=== PATIENT | male | born 1940 | race Caucasian/White ===

== ENCOUNTER 2019-07-20 15:01 | Inpatient (IN) | payer MEDICARE, OTHER ==
[~2019-07-20] VITALS: Ht 172.7 cm; Wt 74.3 kg
[2019-07-20] MEDS ORDERED: BISACODYL 10 MG SUPP PR PRN (15:45)
[2019-07-20 18:00] VITALS: BP 166/78
[2019-07-20] MEDS ORDERED: HEPA100I26 SC (19:08)
[2019-07-20] MEDS ORDERED: FAMO20TA PO (19:08)
[2019-07-20] MEDS ORDERED: RA S8.6T3 PO (19:08)
[2019-07-20] MEDS ORDERED: ATOR80TA59 PO (19:08)
[2019-07-20] MEDS ORDERED: DOCU100C17 PO (19:08)
[2019-07-20] MEDS ORDERED: NIFE90TA20 PO (19:08)
[2019-07-20] MEDS ORDERED: HYDR-2808 PO (19:08)
[2019-07-20] MEDS ORDERED: CALC500T61 PO (19:08)
[2019-07-20] MEDS ORDERED: ASPI81TA85 PO (19:08)
--- NOTE | 2019-07-20 19:33 | CR.PDOC ---
General Date of Consultation: July 20, 2019 Referring Provider: KATHLEEN GALVAN MD Primary Care Physician Germán Mooney Consultation TIME OF SERVICE: 10:35 PM REASON FOR CONSULT: Medical comanagement HISTORY OF PRESENT ILLNESS: This is a 79 -year-old gentleman who was transferred to ARU for rehabilitation from [facility] where he was admitted for management of a left- sided CVA with right-sided residual weakness. This evening he denies having any acute complaints. Per discussion with his RN he was asking for his nighttime dose of Franklin. 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 A1c 6.5 % Chronic lower back pain/DJD affecting the lower back Dyslipidemia Chronic hypertension SOCIAL HISTORY: He quit smoking He doesn't drink FAMILY HISTORY: [place] ALLERGIES: Please see below. HOME MEDICATIONS: Please see below. PHYSICAL EXAMINATION: Vital Signs Date Time Temp Pulse Resp B/P (MAP) Pulse Ox O2 Delivery O2 Flow Rate FiO2 07/20/19 18:00 97.1 76 17 166/78 (107) 98 Room Air GEN: well-nourished / well developed/ NAD INTEGUMENT: not flushed/ not jaundice HEENT: NCAT / /mucus membranes moist and pink CVS: RRR/NMRG LUNGS: able to speak full sentences without stopping to take a breath / lungs are clear to auscultation bilaterally on room air NEURO: speech is not dysarthric / RUE strength approx 1/5, RLE strength approx 3/5 PSYCH: alert and oriented to person place and time/ able to understand and follow all commands LABORATORY DATA: IMAGING: n/a ASSESSMENT: Mr. Go is a 79-year-old with a history of left-sided CVA, carotid stenosis, chronic back pain, dyslipidemia, hypertension, and prediabetes who is admitted to ARU for post CVA rehabilitation. PLAN: 1. Debility 2/2 left-sided CVA - management per Dr Ibrahim / agree w ASA and statin 2. Chronic back pain - Franklin PRN / scheduled lidocane patch 3. Dyslipidemia - statin 4. Uncontrolled chronic hypertension - nifedipine / pending BMP may add low dose ACEI bc of co-existing preDM 5. Prediabetes - exercise Thank you for consulting us we will continue to follow this patient with you. DVT PROPHYLAXIS: per primary team DISPOSITION: per primary team Allergies Coded Allergies: No Known Allergies (Unverified , 07/20/19) Home Medications Scheduled Aspirin (Aspir 81) 81 Mg Tablet.dr, 81 MG PO DAILY, (Reported) Atorvastatin Calcium (Atorvastatin Calcium) 80 Mg Tablet, 80 MG PO QHS, (Reported) Docusate Sodium (Docusate Sodium) 100 Mg Capsule, 100 MG PO BID, (Reported) Famotidine (Famotidine) 20 Mg Tablet, 20 MG PO BID, (Reported) Heparin Sodium,Porcine/Pf (Heparin 1,000 Unit/10 (100/ml)) 1,000 Unit/10 Ml Syringe, 5,000 UNIT SC Q12H, (Reported) STARTED AT [facility] Nifedipine (Nifedipine ER) 90 Mg Tablet.er, 90 MG PO DAILY, (Reported) Sennosides (Senna Lax) 8.6 Mg Tablet, 2 TAB PO QHS, (Reported) Scheduled PRN Calcium Carbonate (Calcium Carbonate) 500 Mg Tablet, 500 MG PO Q4H PRN for HEARTBURN, (Reported) Hydrocodone/Acetaminophen (Hydrocodone-Acetamin 5-300 mg) 1 Each Tablet, 1 TAB PO Q4H PRN for PAIN, (Reported) URIAH OATES MD July 20, 2019 19:33
[2019-07-20 20:00] VITALS: BP 164/82
[2019-07-20] MEDS: REMEDY PHYTOPLEX Z-GUARD PASTE 113GM TUBE (FROM STOREROOM PRODUCT) TOP SCH (20:34)
[2019-07-20] MEDS: ATORVASTATIN 20 MG TAB PO SCH (20:46)
[2019-07-20] MEDS: SENNA 8.6 MG TAB (SENOKOT) PO SCH (20:46)
[2019-07-20] MEDS: DOCUSATE SODIUM 100 MG CAP PO SCH (20:47)
[2019-07-20] MEDS: HEPARIN SOD (PORCINE) 5000UNITS/ML VIAL (J1644 PER 1000UNITS) SC SCH (20:47)
[2019-07-20] MEDS: FAMOTIDINE 20 MG TAB PO SCH (20:47)
[2019-07-20] MEDS: ACETAMINOPHEN TAB 650MG DOSE (2X325MG) PO PRN (20:49)
[2019-07-20] MEDS ORDERED: OYSTER SHELL CALCIUM 500 MG TAB PO PRN (23:00)
[2019-07-20] MEDS ORDERED: NORCO, ANEXSIA 5/325MG TABLET (HYDROcodone/ACETAMINOPHEN) PO PRN (23:00)
[2019-07-21 06:00] VITALS: BP 162/86
[2019-07-21 07:07] LABS: BASO % 0.4 % (0.0-1.0); EOS # 0.1 10^3/uL (0.0-0.5); EOS % 1.2 % (0.0-3.0); HEMATOCRIT 37.4 % (42.0-52.0); HEMOGLOBIN 12.4 g/dl (13.5-17.5); LYMPH # 1.4 10^3/uL (1.5-5.0); LYMPH % 12.5 % (24.0-44.0); MEAN CORPUSCULAR HEMOGLOBIN 32.5 pg (27.0-33.0); MEAN CORPUSCULAR HGB CONC 33.2 g/dl (32.0-36.5); MEAN CORPUSCULAR VOLUME 97.9 fl (80.0-96.0); NEUTROPHILS # 8.4 10^3/uL (1.5-8.5); NEUTROPHILS % 76.1 % (36.0-66.0); PLATELET COUNT, AUTOMATED 328 10^3/uL (150-450); RED BLOOD COUNT 3.82 10^6/uL (4.30-6.10)
[2019-07-21 07:27] LABS: ALBUMIN 2.7 GM/DL (3.2-5.2); ALT/SGPT 50 U/L (12-78); BILIRUBIN,TOTAL 0.9 MG/DL (0.2-1.0); BLOOD UREA NITROGEN 23 MG/DL (7-18); CALCIUM LEVEL 9.4 MG/DL (8.8-10.2); CARBON DIOXIDE LEVEL 28 MEQ/L (21-32); CHLORIDE LEVEL 103 MEQ/L (98-107); CREATININE FOR GFR 0.85 MG/DL (0.70-1.30); GLOMERULAR FILTRATION RATE > 60.0 (>42); GLUCOSE, FASTING 99 MG/DL (70-100); POTASSIUM SERUM 3.6 MEQ/L (3.5-5.1); SODIUM LEVEL 137 MEQ/L (136-145); TOTAL PROTEIN 7.3 GM/DL (6.4-8.2)
[2019-07-21] MEDS: NIFEdipine 30 MG XL TAB PO SCH (08:42)
[2019-07-21] MEDS: DOCUSATE SODIUM 100 MG CAP PO SCH ×2 (08:42→21:00)
[2019-07-21] MEDS: FAMOTIDINE 20 MG TAB PO SCH ×2 (08:42→21:54)
[2019-07-21] MEDS: ASPIRIN 81 MG ENTERIC TAB PO SCH (08:42)
[2019-07-21] MEDS: HEPARIN SOD (PORCINE) 5000UNITS/ML VIAL (J1644 PER 1000UNITS) SC SCH ×2 (08:43→21:54)
[2019-07-21] MEDS: REMEDY PHYTOPLEX Z-GUARD PASTE 113GM TUBE (FROM STOREROOM PRODUCT) TOP SCH ×3 (08:43→21:55)
[2019-07-21] MEDS ORDERED: amLODIPine 10 MG TAB PO SCH (11:30)
--- NOTE | 2019-07-21 12:11 | HPEPDOC ---
[facility] Note DATE OF ADMISSION: 07-20-19 DATE OF SERVICE: 07-21-19 TIME OF ADMISSION: Please refer to physician's admission order. SOURCE OF ADMISSION INFORMATION: [facility] records and patient CHIEF COMPLAINT: stroke HISTORY OF PRESENT ILLNESS: 79M pmh HTN, HLD presented to [facility] on 07-17-19 with right sided weakness where CTH did not show acute intracranial abnormality, but MRI did show acute nonhemorrhagic focus of ischemia in the left anterior wendi. He was started on aspirin and statin with US carotids showing bilateral moderate abe nosis <60% and CTA showing moderate calcific plaque formation of both carotid bulbs and origin of both internal carotid arteries with approximately 75% surface area of narrowing. ECHO revealed LVEF of 63% and mild left ventricular diastolic dysfunction with abnormal relaxation pattern. He was evaluated by therapy, noted to have dysphagia and impairments in mobility and ADLs well below baseline and determined to be appropriate for discharge to ARU on 07-20-19. REVIEW OF SYSTEMS: The following is a completed review of systems and has been reviewed. Review of systems otherwise unremarkable. PAIN: Patient self reports no pain EYES: No recent vision changes EARS, NOSE, & THROAT:+dysphagia CARDIOVASCULAR: Denies chest pain or palpitations PULMONARY: Denies shortness of breath GASTROINTESTINAL: Denies constipation/diarrhea GENITOURINARY: +mild retention MUSCULOSKELETAL: right sided weakness NEUROLOGICAL:right sided paresis HEMATOLOGICAL: no easy bruising SKIN: no rash PSYCHIATRIC: Unremarkable All other review of systems found to be negative. PAST MEDICAL HISTORY: as per HPI PAST SURGICAL HISTORY: none ALLERGIES: Please see below. MEDICATIONS: Please see below. FAMILY HISTORY: [place] SOCIAL HISTORY: No etoh/illicit drugs/smoking DIET: low salt, fluid restrict PHYSICAL EXAMINATION: VITAL SIGNS: Please see below. GENERAL: Pleasant and cooperative. No acute distress. no obvious facial droop, tongue midline HEENT: PERRL. Extraocular movements intact. Clear conjunctiva CARDIOVASCULAR: Regular rate and rhythm. No murmurs, rubs, or gallops LUNGS: Clear to auscultation bilaterally. No wheezes. No rhonchi ABDOMEN: Soft, nontender, nondistended. Positive bowel sounds. Normal active bowel sounds NEUROLOGICAL: Alert and oriented times three. Cranial nerves II through XII grossly intact. Sensation grossly intact in all 4limbs, no exntinction to touch +babinksi RLE (-)clonus EXTREMITIES: 5\5 strength left upper extremity, 2+/5 right UE, 3+ right hip flexors, knee extension, 1/5 ankle DF and EHL, 2/5 PF 5/5 strength in left lower extremity. SKIN: no sacral erythema LABORATORY DATA: Please see below. IMAGING:Imaging documentation personally reviewed by record FUNCTIONAL STATUS: Premorbid: Independent with all activities of daily life as well as mobility On Admission: Moderate assist for bed mobility, functional transfers, ambulation GOALS: Modified independent with functional transfers, household distance, stairs, dressing, bathing, toileting, medical optimization ASSESSMENT:79-year-old M with past medical history of HTN who presents status p ost CVA with right sided hemiparesis PLAN: 1.Rehab- PT/OT advance gait and ADL training, strengthen/stretch/maintain ROM all 4 limbs, evaluate for AFO, Estim to RUE -MANAGER MANAGEMENT for swallow and cog eval 2. Neuro: s/p left anterior wendi ischemic infarct now with right sided paresis and dysphagia, c/u ASA, statin, and good BP control -will start SSRI for motor recovery 3. cardiac: hx of HTn c/u nifedeipine, will add lisinopril for elevated BPs -recent echo showing mild diastolic CHF likely chronic- daily weights, fluid restrict -bilateral carotid stenosis 60% on US, however 75% on CTA- f/u with cardiology regarding further work-up 4. Resp: encourage incentive spirometry, monitor for infection 5. : monitor PVRs, noted to have elevated PSA with microhematuria at [facility], f/u with PMD -will start flomax for suspected enlarged prostate, will consider urology referral 6. GI ppx: protonix 7.DVT ppx: heparin, TEDs 8. Pain: tylenol prn 9. Dispo: TBD POST ADMISSION PHYSICIAN EVALUATION: Medical and functional status: Description of medical status, medical assessment: As above. Rehabilitation diagnosis and current and prior cold morbid medical conditions as above. Risk of complications and plans to mitigate them as above. Description of functional status current status is as above. Prior status as above. Status compared to preadmission: There are no clinically significant differences between the patient's current status and the information described on the preadmission screening document. Treatment plan anticipated: Treatment plan is as described above. Required disciplines including physical therapy, occupational therapy, others as noted above. Intensity of services: 3 hours a day, 6 days a week. Special considerations: There are no specific special or safety considerations that would likely preclude immediate implementation of an intensive rehabilitation program or subsequently influence the plan of care. ATTESTATION: Considering all the information above, it is my best judgment that this patient requires intensive rehabilitation therapy as described above and an inpatient hospital environment due to the complexity of nursing, medical, and rehabilitation needs required by the patient. Furthermore, this patient can reasonably be expected to participate in an benefit from an inpatient rehabilitation stay with an interdisciplinary team approach to the delivery of rehabilitation care under the direction and supervision of rehabilitation physician. PROGNOSIS: Excellent ESTIMATED LENGTH OF STAY:18-21 days. PROJECTED DISCHARGE DESTINATION: Home with family support and any durable medical equipment required to increase functional safety and mobility. TIME SPENT COUNSELING AND COORDINATING INITIAL CARE: Greater than 70 minutes. Vital Signs Vital Sign - Last 24 Hours 07/20/19 07/20/19 07/21/19 07/21/19 18:00 20:00 06:00 08:42 Temp 97.1 97.3 98.6 Pulse 76 69 72 Resp 17 16 16 B/P (MAP) 166/78 (107) 164/82 (109) 162/86 (111) 162/86 Pulse Ox 98 99 98 O2 Delivery Room Air Room Air Room Air 07/21/19 11:26 Pulse 78 B/P (MAP) 163/76 Laboratory Data CBC/BMP Laboratory Tests 07/21/19 06:28 Labs 24H Laboratory Tests 2 07/20/19 17:59: Coronavirus (COVID-19)(PCR) NEGATIVE 07/21/19 06:28: Immature Granulocyte % (Auto) 0.8, Neutrophils (%) (Auto) 76.1H, Lymphocytes (%) (Auto) 12.5L, Monocytes (%) (Auto) 9.0H, Eosinophils (%) (Auto) 1.2, Basophils (%) (Auto) 0.4, Neutrophils # (Auto) 8.4, Lymphocytes # (Auto) 1.4L, Monocytes # (Auto) 1.0H, Eosinophils # (Auto) 0.1, Basophils # (Auto) 0.0, Nucleated Red Blood Cells % (auto) 0.0, Anion Gap 6L, Glomerular Filtration Rate > 60.0, Calcium Level 9.4, Total Bilirubin 0.9, Aspartate Amino Transf (AST/SGOT) 34, Alanine Aminotransferase (ALT/SGPT) 50, Alkaline Phosphatase 123H, Total Protein 7.3, Albumin 2.7L, Albumin/Globulin Ratio 0.59L Home Medications Scheduled Aspirin (Aspir 81) 81 Mg Tablet.dr, 81 MG PO DAILY, (Reported) Atorvastatin Calcium (Atorvastatin Calcium) 80 Mg Tablet, 80 MG PO QHS, (Reported) Docusate Sodium (Docusate Sodium) 100 Mg Capsule, 100 MG PO BID, (Reported) Famotidine (Famotidine) 20 Mg Tablet, 20 MG PO BID, (Reported) Heparin Sodium,Porcine/Pf (Heparin 1,000 Unit/10 (100/ml)) 1,000 Unit/10 Ml Syringe, 5,000 UNIT SC Q12H, (Reported) STARTED AT [facility] Nifedipine (Nifedipine ER) 90 Mg Tablet.er, 90 MG PO DAILY, (Reported) Sennosides (Senna Lax) 8.6 Mg Tablet, 2 TAB PO QHS, (Reported) Scheduled PRN Calcium Carbonate (Calcium Carbonate) 500 Mg Tablet, 500 MG PO Q4H PRN for HEARTBURN, (Reported) Hydrocodone/Acetaminophen (Hydrocodone-Acetamin 5-300 mg) 1 Each Tablet, 1 TAB PO Q4H PRN for PAIN, (Reported) Allergies Coded Allergies: No Known Allergies (Unverified , 07/20/19) A-FIB/CHADSVASC A-FIB History Current/History of A-Fib/PAF?: No KATHLEEN GALVAN MD July 21, 2019 12:11
[2019-07-21] MEDS: lisinopriL 10 MG TAB PO SCH (13:32)
[2019-07-21 14:00] VITALS: BP 161/81
[2019-07-21 20:00] VITALS: BP 148/88
[2019-07-21] MEDS: SENNA 8.6 MG TAB (SENOKOT) PO SCH (21:00)
[2019-07-21] MEDS: TAMSULOSIN 0.4 MG CAP PO SCH (21:54)
[2019-07-21] MEDS: FLUoxetine 20 MG CAP PO SCH (21:54)
[2019-07-21] MEDS: ATORVASTATIN 20 MG TAB PO SCH (21:54)
[2019-07-22 06:44] VITALS: BP 131/60
[2019-07-22] MEDS: HEPARIN SOD (PORCINE) 5000UNITS/ML VIAL (J1644 PER 1000UNITS) SC SCH ×2 (08:38→21:02)
[2019-07-22] MEDS: lisinopriL 10 MG TAB PO SCH (08:39)
[2019-07-22] MEDS: FAMOTIDINE 20 MG TAB PO SCH ×2 (08:39→21:03)
[2019-07-22] MEDS: NIFEdipine 30 MG XL TAB PO SCH (08:39)
[2019-07-22] MEDS: ASPIRIN 81 MG ENTERIC TAB PO SCH (08:39)
[2019-07-22] MEDS: DOCUSATE SODIUM 100 MG CAP PO SCH ×2 (08:39→21:00)
[2019-07-22] MEDS: REMEDY PHYTOPLEX Z-GUARD PASTE 113GM TUBE (FROM STOREROOM PRODUCT) TOP SCH ×3 (08:40→21:04)
[2019-07-22] MEDS ORDERED: VARIBAR PUDDING 40% w/v 230ML TUBE As Ordered ONE (12:22)
[2019-07-22] MEDS ORDERED: BARIUM SULFATE 700 MG TABLET (E-Z-DISK) As Ordered ONE (12:23)
[2019-07-22] MEDS ORDERED: VARIBAR NECTAR 40% w/v 240ML SUSP BTL As Ordered ONE (12:23)
[2019-07-22] MEDS ORDERED: E-Z-PAQUE 96% w/w SUSP 176GM BTL As Ordered ONE (12:23)
[2019-07-22 14:00] VITALS: BP 137/60
--- NOTE | 2019-07-22 15:49 | REP ---
COOKIE SWALLOW The procedure was performed under the direct supervision of Dr. Bob. The procedure was performed with Lyudmila from speech pathology present. 5 ml aliquots of thin, pudding, mixed fruit and solid consistency barium was administered. There is no evidence of penetration or aspiration. A detailed report of this examination will be provided by speech pathology. 1.6 minutes of fluoroscopy time was utilized for this procedure. Electronically Signed by CHICO Wilson 07/22/2019 01:46 P Electronically Signed by Eddie Bob MD 07/22/2019 03:40 P
[2019-07-22 20:00] VITALS: BP 146/70
[2019-07-22] MEDS: FLUoxetine 20 MG CAP PO SCH (21:01)
[2019-07-22] MEDS: ATORVASTATIN 20 MG TAB PO SCH (21:01)
[2019-07-22] MEDS: TAMSULOSIN 0.4 MG CAP PO SCH (21:01)
[2019-07-22] MEDS: SENNA 8.6 MG TAB (SENOKOT) PO SCH (21:01)
[2019-07-23 06:00] VITALS: BP 137/73
[2019-07-23 07:06] LABS: BASO % 0.2 % (0.0-1.0); EOS % 0.2 % (0.0-3.0); HEMOGLOBIN 11.6 g/dl (13.5-17.5); LYMPH # 1.3 10^3/uL (1.5-5.0); LYMPH % 8.1 % (24.0-44.0); MEAN CORPUSCULAR HGB CONC 33.1 g/dl (32.0-36.5); MEAN CORPUSCULAR VOLUME 96.7 fl (80.0-96.0); MONO # 1.3 10^3/uL (0.0-0.8); NEUTROPHILS # 13.7 10^3/uL (1.5-8.5); NEUTROPHILS % 82.9 % (36.0-66.0); PLATELET COUNT, AUTOMATED 343 10^3/uL (150-450); RED BLOOD COUNT 3.62 10^6/uL (4.30-6.10); WHITE BLOOD COUNT 16.5 10^3/uL (4.0-10.0)
[2019-07-23 07:33] LABS: BLOOD UREA NITROGEN 27 MG/DL (7-18); CALCIUM LEVEL 9.3 MG/DL (8.8-10.2); CARBON DIOXIDE LEVEL 27 MEQ/L (21-32); CHLORIDE LEVEL 104 MEQ/L (98-107); CREATININE FOR GFR 0.74 MG/DL (0.70-1.30); GLOMERULAR FILTRATION RATE > 60.0 (>42); GLUCOSE, FASTING 113 MG/DL (70-100); POTASSIUM SERUM 3.9 MEQ/L (3.5-5.1); SODIUM LEVEL 138 MEQ/L (136-145)
[2019-07-23] MEDS: DOCUSATE SODIUM 100 MG CAP PO SCH ×2 (09:00→21:00)
[2019-07-23] MEDS: ASPIRIN 81 MG ENTERIC TAB PO SCH (10:03)
[2019-07-23] MEDS: HEPARIN SOD (PORCINE) 5000UNITS/ML VIAL (J1644 PER 1000UNITS) SC SCH ×2 (10:03→21:52)
[2019-07-23] MEDS: FAMOTIDINE 20 MG TAB PO SCH ×2 (10:03→21:52)
[2019-07-23] MEDS: lisinopriL 20 MG TAB PO SCH (10:04)
[2019-07-23] MEDS: NIFEdipine 30 MG XL TAB PO SCH (10:04)
[2019-07-23] MEDS: REMEDY PHYTOPLEX Z-GUARD PASTE 113GM TUBE (FROM STOREROOM PRODUCT) TOP SCH ×3 (10:05→21:53)
--- NOTE | 2019-07-23 10:21 | IPNPDOC ---
PM&R Progress Note DATE OF SERVICE: July 22, 2019 Wrapper Selector Progress Note Subjective: Patient reporting he does not like drinking nectar thickened liquids, he denies fevers or chills. REVIEW OF SYSTEMS: The following is a completed review of systems and has been reviewed. Review of systems otherwise unremarkable. PAIN: Patient self reports no pain EYES: No recent vision changes EARS, NOSE, & THROAT:+dysphagia CARDIOVASCULAR: Denies chest pain or palpitations PULMONARY: Denies shortness of breath GASTROINTESTINAL: Denies constipation/diarrhea GENITOURINARY: +mild retention MUSCULOSKELETAL: right sided weakness NEUROLOGICAL:right sided paresis HEMATOLOGICAL: no easy bruising SKIN: no rash PSYCHIATRIC: Unremarkable All other review of systems found to be negative. PHYSICAL EXAMINATION: VITAL SIGNS: Please see below. GENERAL: Pleasant and cooperative. No acute distress. no obvious facial droop, tongue midline HEENT: PERRL. Extraocular movements intact. Clear conjunctiva CARDIOVASCULAR: Regular rate and rhythm. No murmurs, rubs, or gallops LUNGS: Clear to auscultation bilaterally. No wheezes. No rhonchi ABDOMEN: Soft, nontender, nondistended. Positive bowel sounds. Normal active bowel sounds NEUROLOGICAL: Alert and oriented times three. Cranial nerves II through XII grossly intact. Sensation grossly intact in all 4limbs, no exntinction to touch +babinksi RLE (-)clonus EXTREMITIES: 5\5 strength left upper extremity, 2+/5 right UE, 3+ right hip flexors, knee extension, 1/5 ankle DF and EHL, 2/5 PF 5/5 strength in left lower extremity. SKIN: no sacral erythema ASSESSMENT:79-year-old M with past medical history of HTN who presents status post CVA with right sided hemiparesis PLAN: 1.Rehab- PT/OT advance gait and ADL training, strengthen/stretch/maintain ROM all 4 limbs, evaluate for AFO, Estim to RUE -DRAFTER LANDSCAPE for swallow and cog eval-advanced to thin liquids, c/u level 2 solids 2. Neuro: s/p left anterior wendi ischemic infarct now with right sided paresis and dysphagia, c/u ASA, statin, and good BP control -c/u SSRI for motor recovery 3. cardiac: hx of HTn c/u nifedeipine, c/u lisinopril for elevated BPs (will increase to 20mg daily) -recent echo showing mild diastolic CHF likely chronic- daily weights, fluid restrict -bilateral carotid stenosis 60% on US, however 75% on CTA- f/u with cardiology r egarding further work-up 4. Resp: encourage incentive spirometry, monitor for infection 5. : monitor PVRs, noted to have elevated PSA with microhematuria at [facility], f/u with PMD -c/u flomax for suspected enlarged prostate, will consider urology referral 6. GI ppx: protonix 7.DVT ppx: heparin, TEDs 8. Pain: tylenol prn 9. Dispo: TBD Allergies Coded Allergies: No Known Allergies (Unverified , 07/20/19) Vital Signs Vital Signs Date Time Temp Pulse Resp B/P (MAP) Pulse Ox O2 Delivery O2 Flow Rate FiO2 07/23/19 10:04 137/73 07/23/19 06:00 99.0 84 19 97 Room Air Laboratory Data CBC/BMP Laboratory Tests 07/23/19 06:35 Labs 24H Laboratory Tests 2 07/23/19 06:35: Immature Granulocyte % (Auto) 0.6, Neutrophils (%) (Auto) 82.9H, Lymphocytes (%) (Auto) 8.1L, Monocytes (%) (Auto) 8.0H, Eosinophils (%) (Auto) 0.2, Basophils (%) (Auto) 0.2, Neutrophils # (Auto) 13.7H, Lymphocytes # (Auto) 1.3L, Monocytes # (Auto) 1.3H, Eosinophils # (Auto) 0.0, Basophils # (Auto) 0.0, Nucleated Red Blood Cells % (auto) 0.0, Anion Gap 7L, Glomerular Filtration Rate > 60.0, Calcium Level 9.3 Current Medications Current Medications Current Medications Medications (Trade) Dose Ordered Sig/Farrah Route PRN Reason Start Time Stop Time Status Last Admin Dose Admin Acetaminophen (Tylenol Tab) 650 mg Q4HP PRN PO fever/MILD PAIN (PS 1-4) 07/20/19 15:45 07/20/19 20:49 Acetaminophen/ Hydrocodone Bitart ([place], Anexsia 5/325) 1 tab Q6HP PRN PO MILD/MODERATE PAIN (PS 1-7) 07/20/19 23:00 Amlodipine Besylate (Norvasc) 10 mg DAILY PO 07/21/19 11:30 07/21/19 11:46 DC 07/21/19 11:26 Aspirin (Ecotrin) 81 mg DAILY PO 07/21/19 09:00 07/23/19 10:03 Atorvastatin Calcium (Lipitor) 80 mg QHS PO 07/20/19 21:00 07/22/19 21:01 Bisacodyl (Dulcolax Suppository) [address] CONSTIPATION 07/20/19 15:45 Calcium Carbonate (Oscal) 500 mg Q4H PRN PO HEARTBURN 07/20/19 23:00 Docusate Sodium (Colace) 100 mg BID PO 07/20/19 21:00 07/21/19 08:42 Famotidine (Pepcid) 20 mg BID PO 07/20/19 21:00 07/23/19 10:03 Fluoxetine HCl (PROzac) 20 mg QHS PO 07/21/19 21:00 07/22/19 21:01 Heparin Sodium (Porcine) (Heparin) 5,000 units Q12H SC 07/20/19 21:00 07/23/19 10:03 Home Med (Med Rec Complete!) ASDIRECTED XX 07/20/19 19:15 07/20/19 20:09 DC Lisinopril (Prinivil) 10 mg DAILY PO 07/21/19 13:00 07/22/19 10:56 DC 07/22/19 08:39 Lisinopril (Prinivil) 20 mg DAILY PO 07/23/19 09:00 07/23/19 10:04 Nifedipine (Procardia Xl) 90 mg DAILY PO 07/21/19 09:00 07/23/19 10:04 Senna (Senokot) 1 tab QHS PO 07/20/19 21:00 07/22/19 21:01 Tamsulosin HCl (Flomax) 0.4 mg QHS PO 07/21/19 21:00 07/22/19 21:01 KATHLEEN GALVAN MD July 23, 2019 10:21
[2019-07-23 14:00] VITALS: BP 127/60
[2019-07-23 20:24] VITALS: BP 150/70
[2019-07-23] MEDS: SENNA 8.6 MG TAB (SENOKOT) PO SCH (21:00)
[2019-07-23] MEDS: TAMSULOSIN 0.4 MG CAP PO SCH (21:52)
[2019-07-23] MEDS: FLUoxetine 20 MG CAP PO SCH (21:52)
[2019-07-23] MEDS: ATORVASTATIN 20 MG TAB PO SCH (21:52)
[2019-07-24 06:00] VITALS: BP 128/70
[2019-07-24] MEDS: DOCUSATE SODIUM 100 MG CAP PO SCH ×2 (08:28→20:08)
[2019-07-24] MEDS: ASPIRIN 81 MG ENTERIC TAB PO SCH (08:28)
[2019-07-24] MEDS: FAMOTIDINE 20 MG TAB PO SCH ×2 (08:28→20:08)
[2019-07-24] MEDS: lisinopriL 20 MG TAB PO SCH (08:29)
[2019-07-24] MEDS: HEPARIN SOD (PORCINE) 5000UNITS/ML VIAL (J1644 PER 1000UNITS) SC SCH ×2 (08:29→20:09)
[2019-07-24] MEDS: NIFEdipine 30 MG XL TAB PO SCH (08:29)
[2019-07-24] MEDS: REMEDY PHYTOPLEX Z-GUARD PASTE 113GM TUBE (FROM STOREROOM PRODUCT) TOP SCH ×3 (08:29→20:09)
[2019-07-24 08:43] LABS: BASO # 0.1 10^3/uL (0.0-0.2); BASO % 0.4 % (0.0-1.0); EOS # 0.2 10^3/uL (0.0-0.5); EOS % 1.3 % (0.0-3.0); HEMATOCRIT 36.5 % (42.0-52.0); LYMPH # 1.8 10^3/uL (1.5-5.0); LYMPH % 12.7 % (24.0-44.0); MEAN CORPUSCULAR HEMOGLOBIN 32.5 pg (27.0-33.0); MEAN CORPUSCULAR HGB CONC 32.9 g/dl (32.0-36.5); MEAN CORPUSCULAR VOLUME 98.9 fl (80.0-96.0); MONO # 0.8 10^3/uL (0.0-0.8); MONO % 5.9 % (0.0-5.0); NEUTROPHILS % 78.5 % (36.0-66.0); PLATELET COUNT, AUTOMATED 390 10^3/uL (150-450); RED BLOOD COUNT 3.69 10^6/uL (4.30-6.10)
[2019-07-24 14:00] VITALS: BP 140/67
[2019-07-24 20:00] VITALS: BP 133/64
[2019-07-24] MEDS: FLUoxetine 20 MG CAP PO SCH (20:08)
[2019-07-24] MEDS: TAMSULOSIN 0.4 MG CAP PO SCH (20:08)
[2019-07-24] MEDS: ATORVASTATIN 20 MG TAB PO SCH (20:08)
[2019-07-24] MEDS: SENNA 8.6 MG TAB (SENOKOT) PO SCH (20:08)
[2019-07-25 05:16] VITALS: BP 154/72
[2019-07-25] MEDS: REMEDY PHYTOPLEX Z-GUARD PASTE 113GM TUBE (FROM STOREROOM PRODUCT) TOP SCH ×3 (08:30→20:21)
[2019-07-25] MEDS: ASPIRIN 81 MG ENTERIC TAB PO SCH (08:30)
[2019-07-25] MEDS: FAMOTIDINE 20 MG TAB PO SCH ×2 (08:30→20:20)
[2019-07-25] MEDS: HEPARIN SOD (PORCINE) 5000UNITS/ML VIAL (J1644 PER 1000UNITS) SC SCH ×2 (08:30→20:20)
[2019-07-25] MEDS: lisinopriL 20 MG TAB PO SCH (08:32)
[2019-07-25] MEDS: DOCUSATE SODIUM 100 MG CAP PO SCH ×2 (08:32→20:20)
[2019-07-25] MEDS: NIFEdipine 30 MG XL TAB PO SCH (08:33)
[2019-07-25 14:00] VITALS: BP 138/64
[2019-07-25 20:00] VITALS: BP 132/63
[2019-07-25] MEDS: TAMSULOSIN 0.4 MG CAP PO SCH (20:20)
[2019-07-25] MEDS: ATORVASTATIN 20 MG TAB PO SCH (20:20)
[2019-07-25] MEDS: FLUoxetine 20 MG CAP PO SCH (20:20)
[2019-07-25] MEDS: SENNA 8.6 MG TAB (SENOKOT) PO SCH (20:20)
[2019-07-26 06:28] VITALS: BP 159/72
[2019-07-26] MEDS: NIFEdipine 30 MG XL TAB PO SCH (08:21)
[2019-07-26] MEDS: HEPARIN SOD (PORCINE) 5000UNITS/ML VIAL (J1644 PER 1000UNITS) SC SCH ×2 (08:21→20:29)
[2019-07-26] MEDS: FAMOTIDINE 20 MG TAB PO SCH ×2 (08:21→20:29)
[2019-07-26] MEDS: lisinopriL 20 MG TAB PO SCH (08:21)
[2019-07-26] MEDS: ASPIRIN 81 MG ENTERIC TAB PO SCH (08:21)
[2019-07-26] MEDS: REMEDY PHYTOPLEX Z-GUARD PASTE 113GM TUBE (FROM STOREROOM PRODUCT) TOP SCH ×3 (08:21→20:30)
[2019-07-26] MEDS: DOCUSATE SODIUM 100 MG CAP PO SCH ×2 (08:22→20:28)
[2019-07-26 09:04] LABS: BASO # 0.1 10^3/uL (0.0-0.2); BASO % 0.4 % (0.0-1.0); EOS # 0.1 10^3/uL (0.0-0.5); EOS % 0.8 % (0.0-3.0); HEMATOCRIT 35.9 % (42.0-52.0); HEMOGLOBIN 11.7 g/dl (13.5-17.5); LYMPH # 1.2 10^3/uL (1.5-5.0); LYMPH % 9.4 % (24.0-44.0); MEAN CORPUSCULAR HEMOGLOBIN 32.5 pg (27.0-33.0); MEAN CORPUSCULAR HGB CONC 32.6 g/dl (32.0-36.5); MEAN CORPUSCULAR VOLUME 99.7 fl (80.0-96.0); MONO # 0.9 10^3/uL (0.0-0.8); NEUTROPHILS # 10.2 10^3/uL (1.5-8.5); PLATELET COUNT, AUTOMATED 417 10^3/uL (150-450); WHITE BLOOD COUNT 12.8 10^3/uL (4.0-10.0)
[2019-07-26 09:18] LABS: BLOOD UREA NITROGEN 16 MG/DL (7-18); CALCIUM LEVEL 9.6 MG/DL (8.8-10.2); CARBON DIOXIDE LEVEL 28 MEQ/L (21-32); CHLORIDE LEVEL 103 MEQ/L (98-107); CREATININE FOR GFR 0.92 MG/DL (0.70-1.30); GLOMERULAR FILTRATION RATE > 60.0 (>42); GLUCOSE, FASTING 155 MG/DL (70-100); POTASSIUM SERUM 3.9 MEQ/L (3.5-5.1); SODIUM LEVEL 136 MEQ/L (136-145)
[2019-07-26 14:00] VITALS: BP 142/64
--- NOTE | 2019-07-26 16:00 | IPNPDOC ---
PM&R Progress Note DATE OF SERVICE: July 26, 2019 Software Application Tester Progress Note Subjective: Patient reporting he is urianting better and has not needed to be catheterized. He also states he can lift his right ankle and his last puller is improving in his right hand. REVIEW OF SYSTEMS: The following is a completed review of systems and has been reviewed. Review of systems otherwise unremarkable. PAIN: Patient self reports no pain EYES: No recent vision changes EARS, NOSE, & THROAT:+dysphagia (improving) CARDIOVASCULAR: Denies chest pain or palpitations PULMONARY: Denies shortness of breath GASTROINTESTINAL: Denies constipation/diarrhea GENITOURINARY: +mild retention (improving) MUSCULOSKELETAL: right sided weakness NEUROLOGICAL:right sided paresis HEMATOLOGICAL: no easy bruising SKIN: no rash PSYCHIATRIC: Unremarkable All other review of systems found to be negative. PHYSICAL EXAMINATION: VITAL SIGNS: Please see below. GENERAL: Pleasant and cooperative. No acute distress. no obvious facial droop, tongue midline HEENT: PERRL. Extraocular movements intact. Clear conjunctiva CARDIOVASCULAR: Regular rate and rhythm. No murmurs, rubs, or gallops LUNGS: Clear to auscultation bilaterally. No wheezes. No rhonchi ABDOMEN: Soft, nontender, nondistended. Positive bowel sounds. Normal active bowel sounds NEUROLOGICAL: Alert and oriented times three. Cranial nerves II through XII grossly intact. Sensation grossly intact in all 4limbs, no exntinction to touch +babinksi RLE (-)clonus EXTREMITIES: 5\5 strength left upper extremity, 3/5 right UE, 4 right hip flexors, knee extension, 3+/5 ankle DF and EHL, 3+/5 PF 5/5 strength in left lo wer extremity. SKIN: no sacral erythema ASSESSMENT:79-year-old M with past medical history of HTN who presents status post CVA with right sided hemiparesis PLAN: 1.Rehab- PT/OT advance gait and ADL training, strengthen/stretch/maintain ROM all 4 limbs, evaluate for AFO, Estim to RUE -ELEMENTARY PRINCIPAL for swallow and cog eval-advanced to thin liquids, advance to level 3 solids 2. Neuro: s/p left anterior wendi ischemic infarct now with right sided paresis and dysphagia, c/u ASA, statin, and good BP control -c/u SSRI for motor recovery 3. cardiac: hx of HTn c/u nifedeipine, c/u lisinopril for elevated BPs (increased to 20mg daily) -recent echo showing mild diastolic CHF likely chronic- daily weights, fluid restrict -bilateral carotid stenosis 60% on US, however 75% on CTA- f/u with cardiology regarding further work-up 4. Resp: encourage incentive spirometry, monitor for infection 5. : noted to have elevated PSA with microhematuria at [facility], f/u with PMD -c/u flomax for suspected enlarged prostate, will consider urology referral- voiding well 6. GI ppx: protonix 7.DVT ppx: heparin, TEDs 8. Pain: tylenol prn 9. Dispo: TBD Allergies Coded Allergies: No Known Allergies (Unverified , 07/20/19) Vital Signs Vital Signs Date Time Temp Pulse Resp B/P (MAP) Pulse Ox O2 Delivery O2 Flow Rate FiO2 07/26/19 14:00 97.7 71 18 142/64 (90) 99 Room Air Laboratory Data CBC/BMP Laboratory Tests 07/26/19 08:45 Labs 24H Laboratory Tests 2 07/26/19 08:45: Immature Granulocyte % (Auto) 2.4, Neutrophils (%) (Auto) 80.0H, Lymphocytes (%) (Auto) 9.4L, Monocytes (%) (Auto) 7.0H, Eosinophils (%) (Auto) 0.8, Basophils (%) (Auto) 0.4, Neutrophils # (Auto) 10.2H, Lymphocytes # (Auto) 1.2L, Monocytes # (Auto) 0.9H, Eosinophils # (Auto) 0.1, Basophils # (Auto) 0.1, Nucleated Red Blood Cells % (auto) 0.0, Anion Gap 5L, Glomerular Filtration Rate > 60.0, Calcium Level 9.6 Current Medications Current Medications Current Medications Medications (Trade) Dose Ordered Sig/Farrah Route PRN Reason Start Time Stop Time Status Last Admin Dose Admin Acetaminophen (Tylenol Tab) 650 mg Q4HP PRN PO fever/MILD PAIN (PS 1-4) 07/20/19 15:45 07/20/19 20:49 Acetaminophen/ Hydrocodone Bitart ([place], Anexsia 5/325) 1 tab Q6HP PRN PO MILD/MODERATE PAIN (PS 1-7) 07/20/19 23:00 Amlodipine Besylate (Norvasc) 10 mg DAILY PO 07/21/19 11:30 07/21/19 11:46 DC 07/21/19 11:26 Aspirin (Ecotrin) 81 mg DAILY PO 07/21/19 09:00 07/26/19 08:21 Atorvastatin Calcium (Lipitor) 80 mg QHS PO 07/20/19 21:00 07/25/19 20:20 Bisacodyl (Dulcolax Suppository) 10 mg DAILYPRN PRN [place] CONSTIPATION 07/20/19 15:45 Calcium Carbonate (Oscal) 500 mg Q4H PRN PO HEARTBURN 07/20/19 23:00 Docusate Sodium (Colace) 100 mg BID PO 07/20/19 21:00 07/25/19 20:20 Famotidine (Pepcid) 20 mg BID PO 07/20/19 21:00 07/26/19 08:21 Fluoxetine HCl (PROzac) 20 mg QHS PO 07/21/19 21:00 07/25/19 20:20 Heparin Sodium (Porcine) (Heparin) 5,000 units Q12H SC 07/20/19 21:00 07/26/19 08:21 Home Med (Med Rec Complete!) ASDIRECTED XX 07/20/19 19:15 07/20/19 20:09 DC Lisinopril (Prinivil) 10 mg DAILY PO 07/21/19 13:00 07/22/19 10:56 DC 07/22/19 08:39 Lisinopril (Prinivil) 20 mg DAILY PO 07/23/19 09:00 07/26/19 08:21 Nifedipine (Procardia Xl) 90 mg DAILY PO 07/21/19 09:00 07/26/19 08:21 Senna (Senokot) 1 tab QHS PO 07/20/19 21:00 07/25/19 20:20 Tamsulosin HCl (Flomax) 0.4 mg QHS PO 07/21/19 21:00 07/26/19 12:17 DC 07/25/19 20:20 Tamsulosin HCl (Flomax) 0.8 mg QHS PO 07/26/19 21:00 KATHLEEN GALVAN MD July 26, 2019 16:00
[2019-07-26 20:01] VITALS: BP 147/69
[2019-07-26] MEDS: TAMSULOSIN 0.4 MG CAP PO SCH (20:28)
[2019-07-26] MEDS: FLUoxetine 20 MG CAP PO SCH (20:29)
[2019-07-26] MEDS: ATORVASTATIN 20 MG TAB PO SCH (20:29)
[2019-07-26] MEDS ORDERED: TAMSULOSIN 0.4 MG CAP PO SCH (21:00)
[2019-07-26] MEDS ORDERED: SENNA 8.6 MG TAB (SENOKOT) PO PRN (21:00)
[2019-07-27 05:00] VITALS: BP 135/64
[2019-07-27] MEDS: lisinopriL 20 MG TAB PO SCH (07:24)
[2019-07-27] MEDS: DOCUSATE SODIUM 100 MG CAP PO SCH ×2 (07:24→20:39)
[2019-07-27] MEDS: ASPIRIN 81 MG ENTERIC TAB PO SCH (07:24)
[2019-07-27] MEDS: FAMOTIDINE 20 MG TAB PO SCH ×2 (07:24→20:38)
[2019-07-27] MEDS: HEPARIN SOD (PORCINE) 5000UNITS/ML VIAL (J1644 PER 1000UNITS) SC SCH ×2 (07:25→20:39)
[2019-07-27] MEDS: NIFEdipine 30 MG XL TAB PO SCH (07:25)
[2019-07-27] MEDS: REMEDY PHYTOPLEX Z-GUARD PASTE 113GM TUBE (FROM STOREROOM PRODUCT) TOP SCH ×3 (07:25→20:43)
[2019-07-27 14:00] VITALS: BP 144/67
[2019-07-27 20:00] VITALS: BP 131/62
[2019-07-27] MEDS: TAMSULOSIN 0.4 MG CAP PO SCH (20:38)
[2019-07-27] MEDS: ATORVASTATIN 20 MG TAB PO SCH (20:38)
[2019-07-27] MEDS: FLUoxetine 20 MG CAP PO SCH (20:41)
[2019-07-28 05:38] VITALS: BP 136/65
[2019-07-28 06:46] LABS: BASO % 0.4 % (0.0-1.0); EOS # 0.1 10^3/uL (0.0-0.5); HEMATOCRIT 32.4 % (42.0-52.0); HEMOGLOBIN 10.4 g/dl (13.5-17.5); LYMPH # 1.7 10^3/uL (1.5-5.0); LYMPH % 15.9 % (24.0-44.0); MEAN CORPUSCULAR HEMOGLOBIN 31.5 pg (27.0-33.0); MEAN CORPUSCULAR HGB CONC 32.1 g/dl (32.0-36.5); MEAN CORPUSCULAR VOLUME 98.2 fl (80.0-96.0); MONO % 9.7 % (0.0-5.0); NEUTROPHILS # 7.7 10^3/uL (1.5-8.5); NEUTROPHILS % 71.2 % (36.0-66.0); PLATELET COUNT, AUTOMATED 377 10^3/uL (150-450); WHITE BLOOD COUNT 10.7 10^3/uL (4.0-10.0)
[2019-07-28 07:09] LABS: BLOOD UREA NITROGEN 12 MG/DL (7-18); CALCIUM LEVEL 9.3 MG/DL (8.8-10.2); CARBON DIOXIDE LEVEL 29 MEQ/L (21-32); CHLORIDE LEVEL 104 MEQ/L (98-107); CREATININE FOR GFR 0.75 MG/DL (0.70-1.30); GLOMERULAR FILTRATION RATE > 60.0 (>42); GLUCOSE, FASTING 110 MG/DL (70-100); POTASSIUM SERUM 3.8 MEQ/L (3.5-5.1); SODIUM LEVEL 137 MEQ/L (136-145)
[2019-07-28] MEDS: ASPIRIN 81 MG ENTERIC TAB PO SCH (08:02)
[2019-07-28] MEDS: FAMOTIDINE 20 MG TAB PO SCH ×2 (08:03→20:46)
[2019-07-28] MEDS: DOCUSATE SODIUM 100 MG CAP PO SCH ×3 (08:03→20:48)
[2019-07-28] MEDS: NIFEdipine 30 MG XL TAB PO SCH (08:03)
[2019-07-28] MEDS: lisinopriL 20 MG TAB PO SCH (08:03)
[2019-07-28] MEDS: HEPARIN SOD (PORCINE) 5000UNITS/ML VIAL (J1644 PER 1000UNITS) SC SCH ×2 (08:03→20:46)
[2019-07-28] MEDS: REMEDY PHYTOPLEX Z-GUARD PASTE 113GM TUBE (FROM STOREROOM PRODUCT) TOP SCH ×3 (08:04→20:47)
[2019-07-28 14:00] VITALS: BP 127/56
[2019-07-28 20:00] VITALS: BP 152/67
[2019-07-28] MEDS: TAMSULOSIN 0.4 MG CAP PO SCH (20:46)
[2019-07-28] MEDS: ACETAMINOPHEN TAB 650MG DOSE (2X325MG) PO PRN (20:46)
[2019-07-28] MEDS: FLUoxetine 20 MG CAP PO SCH (20:46)
[2019-07-28] MEDS: ATORVASTATIN 20 MG TAB PO SCH (20:46)
[2019-07-29 05:59] VITALS: BP 125/60
[2019-07-29] MEDS: REMEDY PHYTOPLEX Z-GUARD PASTE 113GM TUBE (FROM STOREROOM PRODUCT) TOP SCH ×3 (09:00→20:25)
[2019-07-29] MEDS: DOCUSATE SODIUM 100 MG CAP PO SCH ×2 (09:00→09:15)
[2019-07-29] MEDS: HEPARIN SOD (PORCINE) 5000UNITS/ML VIAL (J1644 PER 1000UNITS) SC SCH ×2 (09:15→20:24)
[2019-07-29] MEDS: FAMOTIDINE 20 MG TAB PO SCH ×2 (09:15→20:24)
[2019-07-29] MEDS: lisinopriL 20 MG TAB PO SCH (09:16)
[2019-07-29] MEDS: ASPIRIN 81 MG ENTERIC TAB PO SCH (09:16)
[2019-07-29] MEDS: NIFEdipine 30 MG XL TAB PO SCH (09:16)
[2019-07-29 14:00] VITALS: BP 143/66
--- NOTE | 2019-07-29 14:42 | IPNPDOC ---
PM&R Progress Note DATE OF SERVICE: July 27, 2019 Sample Body Builder Progress Note Subjective: Patient reporting he is continuing to work on strengthening his right arm. He does not want to use the multipodus boot at night any longer since he had better ankle control now. REVIEW OF SYSTEMS: The following is a completed review of systems and has been reviewed. Review of systems otherwise unremarkable. PAIN: Patient self reports no pain EYES: No recent vision changes EARS, NOSE, & THROAT:+dysphagia (improving) CARDIOVASCULAR: Denies chest pain or palpitations PULMONARY: Denies shortness of breath GASTROINTESTINAL: Denies constipation/diarrhea GENITOURINARY: +mild retention (improving) MUSCULOSKELETAL: right sided weakness NEUROLOGICAL:right sided paresis HEMATOLOGICAL: no easy bruising SKIN: no rash PSYCHIATRIC: Unremarkable All other review of systems found to be negative. PHYSICAL EXAMINATION: VITAL SIGNS: Please see below. GENERAL: Pleasant and cooperative. No acute distress. no obvious facial droop, tongue midline HEENT: PERRL. Extraocular movements intact. Clear conjunctiva CARDIOVASCULAR: Regular rate and rhythm. No murmurs, rubs, or gallops LUNGS: Clear to auscultation bilaterally. No wheezes. No rhonchi ABDOMEN: Soft, nontender, nondistended. Positive bowel sounds. Normal active bowel sounds NEUROLOGICAL: Alert and oriented times three. Cranial nerves II through XII grossly intact. Sensation grossly intact in all 4limbs, no exntinction to touch +babinksi RLE (-)clonus EXTREMITIES: 5\5 strength left upper extremity, 3/5 right UE, 4 right hip flexors, knee extension, 3+/5 ankle DF and EHL, 3+/5 PF 5/5 strength in left lower extremity. SKIN: no sacral erythema ASSESSMENT:79-year-old M with past medical history of HTN who presents status post CVA with right sided hemiparesis PLAN: 1.Rehab- PT/OT advance gait and ADL training, strengthen/stretch/maintain ROM all 4 limbs, evaluate for AFO, Estim to RUE -FORMING PROCESS LINE WORKER for swallow and cog eval-advanced to thin liquids, advance to level 3 solids 2. Neuro: s/p left anterior wendi ischemic infarct now with right sided paresis and dysphagia, c/u ASA, statin, and good BP control -c/u SSRI for motor recovery 3. cardiac: hx of HTn c/u nifedeipine, c/u lisinopril for elevated BPs (increased to 20mg daily) -recent echo showing mild diastolic CHF likely chronic- daily weights, fluid restrict -bilateral carotid stenosis 60% on US, however 75% on CTA- f/u with cardiology regarding further work-up 4. Resp: encourage incentive spirometry, monitor for infection 5. : noted to have elevated PSA with microhematuria at [facility], f/u with PMD -c/u flomax for suspected enlarged prostate, will consider urology referral- voiding well 6. GI ppx: protonix 7.DVT ppx: heparin, TEDs 8. Pain: tylenol prn 9. Dispo: 08-06-19 to home, progressing towards goals Allergies Coded Allergies: No Known Allergies (Unverified , 07/20/19) Vital Signs Vital Signs Date Time Temp Pulse Resp B/P (MAP) Pulse Ox O2 Delivery O2 Flow Rate FiO2 07/29/19 05:59 97.8 66 18 125/60 (81) 96 Room Air Current Medications Current Medications Current Medications Medications (Trade) Dose Ordered Sig/Farrah Route PRN Reason Start Time Stop Time Status Last Admin Dose Admin Acetaminophen (Tylenol Tab) 650 mg Q4HP PRN PO fever/MILD PAIN (PS 1-4) 07/20/19 15:45 07/28/19 20:46 Acetaminophen/ Hydrocodone Bitart ([place], Anexsia 5/325) 1 tab Q6HP PRN PO MILD/MODERATE PAIN (PS 1-7) 07/20/19 23:00 07/27/19 08:53 DC Amlodipine Besylate (Norvasc) 10 mg DAILY PO 07/21/19 11:30 07/21/19 11:46 DC 07/21/19 11:26 Aspirin (Ecotrin) 81 mg DAILY PO 07/21/19 09:00 07/29/19 09:16 Atorvastatin Calcium (Lipitor) 80 mg QHS PO 07/20/19 21:00 07/28/19 20:46 Bisacodyl (Dulcolax Suppository) 10 mg DAILYPRN PRN [place] CONSTIPATION 07/20/19 15:45 Calcium Carbonate (Oscal) 500 mg Q4H PRN PO HEARTBURN 07/20/19 23:00 Docusate Sodium (Colace) 100 mg BID PO 07/20/19 21:00 07/25/19 20:20 Famotidine (Pepcid) 20 mg BID PO 07/20/19 21:00 07/29/19 09:15 Fluoxetine HCl (PROzac) 20 mg QHS PO 07/21/19 21:00 07/28/19 20:46 Heparin Sodium (Porcine) (Heparin) 5,000 units Q12H SC 07/20/19 21:00 07/29/19 09:15 Home Med (Med Rec Complete!) ASDIRECTED XX 07/20/19 19:15 07/20/19 20:09 DC Lisinopril (Prinivil) 10 mg DAILY PO 07/21/19 13:00 07/22/19 10:56 DC 07/22/19 08:39 Lisinopril (Prinivil) 20 mg DAILY PO 07/23/19 09:00 07/29/19 09:16 Miscellaneous (Unresolved Clarification Entry) SEE LABEL COMMENTS DAILY XX 07/27/19 09:00 07/27/19 08:53 DC Nifedipine (Procardia Xl) 90 mg DAILY PO 07/21/19 09:00 07/29/19 09:16 Senna (Senokot) 1 tab QHS PO 07/20/19 21:00 07/26/19 15:55 DC 07/25/19 20:20 Senna (Senokot) 1 tab QHS PRN PO constipation 07/26/19 21:00 Tamsulosin HCl (Flomax) 0.4 mg QHS PO 07/26/19 21:00 07/28/19 20:46 Tamsulosin HCl (Flomax) 0.4 mg QHS PO 07/21/19 21:00 07/26/19 12:17 DC 07/25/19 20:20 Tamsulosin HCl (Flomax) 0.8 mg QHS PO 07/26/19 21:00 07/26/19 15:55 KATHLEEN BETANCOURT MD July 29, 2019 14:42
--- NOTE | 2019-07-29 14:44 | IPNPDOC ---
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 REVIEW OF SYSTEMS: The following is a completed review of systems and has been reviewed. Review of systems otherwise unremarkable. PAIN: Patient self reports no pain EYES: No recent vision changes EARS, NOSE, & THROAT:+dysphagia (improving) CARDIOVASCULAR: Denies chest pain or palpitations PULMONARY: Denies shortness of breath GASTROINTESTINAL: Denies constipation/diarrhea GENITOURINARY: +mild retention (improving) MUSCULOSKELETAL: right sided weakness NEUROLOGICAL:right sided paresis HEMATOLOGICAL: no easy bruising SKIN: no rash PSYCHIATRIC: Unremarkable All other review of systems found to be negative. PHYSICAL EXAMINATION: VITAL SIGNS: Please see below. GENERAL: Pleasant and cooperative. No acute distress. no obvious facial droop, tongue midline HEENT: PERRL. Extraocular movements intact. Clear conjunctiva CARDIOVASCULAR: Regular rate and rhythm. No murmurs, rubs, or gallops LUNGS: Clear to auscultation bilaterally. No wheezes. No rhonchi ABDOMEN: Soft, nontender, nondistended. Positive bowel sounds. Normal active bowel sounds NEUROLOGICAL: Alert and oriented times three. Cranial nerves II through XII grossly intact. Sensation grossly intact in all 4limbs, no exntinction to touch +babinksi RLE (-)clonus EXTREMITIES: 5\5 strength left upper extremity, 3+/5 right UE, 4 right hip flexors, knee extension, 3+/5 ankle DF and EHL, 3+/5 PF 5/5 strength in left lower extremity. SKIN: no sacral erythema ASSESSMENT:79-year-old M with past medical history of HTN who presents status post CVA with right sided hemiparesis PLAN: 1.Rehab- PT/OT advance gait and ADL training, strengthen/stretch/maintain ROM all 4 limbs, evaluate for AFO, Estim to RUE -SERVICES ADVISOR for swallow and cog eval-advanced to thin liquids, advance to regular diet 2. Neuro: s/p left anterior wendi ischemic infarct now with right sided paresis and dysphagia, c/u ASA, statin, and good BP control -c/u SSRI for motor recovery 3. cardiac: hx of HTn c/u nifedeipine, c/u lisinopril for elevated BPs (increased to 20mg daily) -recent echo showing mild diastolic CHF likely chronic- daily weights, fluid restrict -bilateral carotid stenosis 60% on US, however 75% on CTA- f/u with cardiology regarding further work-up 4. Resp: encourage incentive spirometry, monitor for infection 5. : noted to have elevated PSA with microhematuria at [facility], f/u with PMD -c/u flomax for suspected enlarged prostate, will consider urology referral- voiding well 6. GI ppx: protonix 7.DVT ppx: heparin, TEDs 8. Pain: tylenol prn 9. Dispo: 08-06-19 to home, progressing towards goals Allergies Coded Allergies: No Known Allergies (Unverified , 07/20/19) Vital Signs Vital Signs Date Time Temp Pulse Resp B/P (MAP) Pulse Ox O2 Delivery O2 Flow Rate FiO2 07/29/19 05:59 97.8 66 18 125/60 (81) 96 Room Air Current Medications Current Medications Current Medications Medications (Trade) Dose Ordered Sig/Farrah Route PRN Reason Start Time Stop Time Status Last Admin Dose Admin Acetaminophen (Tylenol Tab) 650 mg Q4HP PRN PO fever/MILD PAIN (PS 1-4) 07/20/19 15:45 07/28/19 20:46 Acetaminophen/ Hydrocodone Bitart ([place], Anexsia 5/325) 1 tab Q6HP PRN PO MILD/MODERATE PAIN (PS 1-7) 07/20/19 23:00 07/27/19 08:53 DC Amlodipine Besylate (Norvasc) 10 mg DAILY PO 07/21/19 11:30 07/21/19 11:46 DC 07/21/19 11:26 Aspirin (Ecotrin) 81 mg DAILY PO 07/21/19 09:00 07/29/19 09:16 Atorvastatin Calcium (Lipitor) 80 mg QHS PO 07/20/19 21:00 07/28/19 20:46 Bisacodyl (Dulcolax Suppository) 10 mg DAILYPRN PRN [place] CONSTIPATION 07/20/19 15:45 Calcium Carbonate (Oscal) 500 mg Q4H PRN PO HEARTBURN 07/20/19 23:00 Docusate Sodium (Colace) 100 mg BID PO 07/20/19 21:00 07/25/19 20:20 Famotidine (Pepcid) 20 mg BID PO 07/20/19 21:00 07/29/19 09:15 Fluoxetine HCl (PROzac) 20 mg QHS PO 07/21/19 21:00 07/28/19 20:46 Heparin Sodium (Porcine) (Heparin) 5,000 units Q12H SC 07/20/19 21:00 07/29/19 09:15 Home Med (Med Rec Complete!) ASDIRECTED XX 07/20/19 19:15 07/20/19 20:09 DC Lisinopril (Prinivil) 10 mg DAILY PO 07/21/19 13:00 07/22/19 10:56 DC 07/22/19 08:39 Lisinopril (Prinivil) 20 mg DAILY PO 07/23/19 09:00 07/29/19 09:16 Miscellaneous (Unresolved Clarification Entry) SEE LABEL COMMENTS DAILY XX 07/27/19 09:00 07/27/19 08:53 DC Nifedipine (Procardia Xl) 90 mg DAILY PO 07/21/19 09:00 07/29/19 09:16 Senna (Senokot) 1 tab QHS PO 07/20/19 21:00 07/26/19 15:55 DC 07/25/19 20:20 Senna (Senokot) 1 tab QHS PRN PO constipation 07/26/19 21:00 Tamsulosin HCl (Flomax) 0.4 mg QHS PO 07/26/19 21:00 07/28/19 20:46 Tamsulosin HCl (Flomax) 0.4 mg QHS PO 07/21/19 21:00 07/26/19 12:17 DC 07/25/19 20:20 Tamsulosin HCl (Flomax) 0.8 mg QHS PO 07/26/19 21:00 07/26/19 15:55 KATHLEEN BETANCOURT MD July 29, 2019 14:44
[2019-07-29] MEDS ORDERED: DOCUSATE SODIUM 100 MG CAP PO PRN (14:45)
--- NOTE | 2019-07-29 14:46 | IPNPDOC ---
PM&R Progress Note DATE OF SERVICE: July 29, 2019 Travel Guide Progress Note Subjective: Patient stating his stool is soft and he doesn't want to take the stool softener anymore. REVIEW OF SYSTEMS: The following is a completed review of systems and has been reviewed. Review of systems otherwise unremarkable. PAIN: Patient self reports no pain EYES: No recent vision changes EARS, NOSE, & THROAT:+dysphagia (improving) CARDIOVASCULAR: Denies chest pain or palpitations PULMONARY: Denies shortness of breath GASTROINTESTINAL: Denies constipation/diarrhea GENITOURINARY: +mild retention (resolved) MUSCULOSKELETAL: right sided weakness NEUROLOGICAL:right sided paresis HEMATOLOGICAL: no easy bruising SKIN: no rash PSYCHIATRIC: Unremarkable All other review of systems found to be negative. PHYSICAL EXAMINATION: VITAL SIGNS: Please see below. GENERAL: Pleasant and cooperative. No acute distress. no obvious facial droop, tongue midline HEENT: PERRL. Extraocular movements intact. Clear conjunctiva CARDIOVASCULAR: Regular rate and rhythm. No murmurs, rubs, or gallops LUNGS: Clear to auscultation bilaterally. No wheezes. No rhonchi ABDOMEN: Soft, nontender, nondistended. Positive bowel sounds. Normal active bowel sounds NEUROLOGICAL: Alert and oriented times three. Cranial nerves II through XII grossly intact. Sensation grossly intact in all 4limbs, no exntinction to touch +babinksi RLE (-)clonus EXTREMITIES: 5\5 strength left upper extremity, 4-/5 right UE, 4 right hip flexors, knee extension, 4/5 ankle DF and EHL, 4/5 PF 5/5 strength in left lower extremity. SKIN: no sacral erythema ASSESSMENT:79-year-old M with past medical history of HTN who presents status post CVA with right sided hemiparesis PLAN: 1.Rehab- PT/OT advance gait and ADL training, strengthen/stretch/maintain ROM all 4 limbs, evaluate for AFO, Estim to RUE -SLAT TWISTER for swallow and cog eval-advanced to thin liquids, advance to regular diet 2. Neuro: s/p left anterior wendi ischemic infarct now with right sided paresis and dysphagia, c/u ASA, statin, and good BP control -c/u SSRI for motor recovery 3. cardiac: hx of HTn c/u nifedeipine, c/u lisinopril for elevated BPs (increased to 20mg daily) -recent echo showing mild diastolic CHF likely chronic- daily weights, fluid restrict -bilateral carotid stenosis 60% on US, however 75% on CTA- f/u with cardiology regarding further work-up 4. Resp: encourage incentive spirometry, monitor for infection 5. : noted to have elevated PSA with microhematuria at [facility], f/u with PMD -c/u flomax for suspected enlarged prostate, will consider urology referral- voiding well 6. GI ppx: protonix -change bowel meds to prn 7.DVT ppx: heparin, TEDs 8. Pain: tylenol prn 9. Dispo: 08-06-19 to home, progressing towards goals Allergies Coded Allergies: No Known Allergies (Unverified , 07/20/19) Vital Signs Vital Signs Date Time Temp Pulse Resp B/P (MAP) Pulse Ox O2 Delivery O2 Flow Rate FiO2 07/29/19 05:59 97.8 66 18 125/60 (81) 96 Room Air Current Medications Current Medications Current Medications Medications (Trade) Dose Ordered Sig/Farrah Route PRN Reason Start Time Stop Time Status Last Admin Dose Admin Acetaminophen (Tylenol Tab) 650 mg Q4HP PRN PO fever/MILD PAIN (PS 1-4) 07/20/19 15:45 07/28/19 20:46 Acetaminophen/ Hydrocodone Bitart ([place], Anexsia 5/325) 1 tab Q6HP PRN PO MILD/MODERATE PAIN (PS 1-7) 07/20/19 23:00 07/27/19 08:53 DC Amlodipine Besylate (Norvasc) 10 mg DAILY PO 07/21/19 11:30 07/21/19 11:46 DC 07/21/19 11:26 Aspirin (Ecotrin) 81 mg DAILY PO 07/21/19 09:00 07/29/19 09:16 Atorvastatin Calcium (Lipitor) 80 mg QHS PO 07/20/19 21:00 07/28/19 20:46 Bisacodyl (Dulcolax Suppository) 10 mg DAILYPRN PRN [place] CONSTIPATION 07/20/19 15:45 Calcium Carbonate (Oscal) 500 mg Q4H PRN PO HEARTBURN 07/20/19 23:00 Docusate Sodium (Colace) 100 mg BID PO 07/20/19 21:00 07/25/19 20:20 Famotidine (Pepcid) 20 mg BID PO 07/20/19 21:00 07/29/19 09:15 Fluoxetine HCl (PROzac) 20 mg QHS PO 07/21/19 21:00 07/28/19 20:46 Heparin Sodium (Porcine) (Heparin) 5,000 units Q12H SC 07/20/19 21:00 07/29/19 09:15 Home Med (Med Rec Complete!) ASDIRECTED XX 07/20/19 19:15 07/20/19 20:09 DC Lisinopril (Prinivil) 10 mg DAILY PO 07/21/19 13:00 07/22/19 10:56 DC 07/22/19 08:39 Lisinopril (Prinivil) 20 mg DAILY PO 07/23/19 09:00 07/29/19 09:16 Miscellaneous (Unresolved Clarification Entry) SEE LABEL COMMENTS DAILY XX 07/27/19 09:00 07/27/19 08:53 DC Nifedipine (Procardia Xl) 90 mg DAILY PO 07/21/19 09:00 07/29/19 09:16 Senna (Senokot) 1 tab QHS PO 07/20/19 21:00 07/26/19 15:55 DC 07/25/19 20:20 Senna (Senokot) 1 tab QHS PRN PO constipation 07/26/19 21:00 Tamsulosin HCl (Flomax) 0.4 mg QHS PO 07/26/19 21:00 07/28/19 20:46 Tamsulosin HCl (Flomax) 0.4 mg QHS PO 07/21/19 21:00 07/26/19 12:17 DC 07/25/19 20:20 Tamsulosin HCl (Flomax) 0.8 mg QHS PO 07/26/19 21:00 07/26/19 15:55 DC KATHLEEN GALVAN MD July 29, 2019 14:46
[2019-07-29 20:00] VITALS: BP 123/60
[2019-07-29] MEDS: ACETAMINOPHEN TAB 650MG DOSE (2X325MG) PO PRN (20:24)
[2019-07-29] MEDS: TAMSULOSIN 0.4 MG CAP PO SCH (20:24)
[2019-07-29] MEDS: ATORVASTATIN 20 MG TAB PO SCH (20:24)
[2019-07-29] MEDS: FLUoxetine 20 MG CAP PO SCH (20:24)
[2019-07-30 06:00] VITALS: BP 145/65
[2019-07-30 07:06] LABS: BLOOD UREA NITROGEN 13 MG/DL (7-18); CALCIUM LEVEL 8.9 MG/DL (8.8-10.2); CARBON DIOXIDE LEVEL 29 MEQ/L (21-32); CHLORIDE LEVEL 104 MEQ/L (98-107); CREATININE FOR GFR 0.72 MG/DL (0.70-1.30); GLOMERULAR FILTRATION RATE > 60.0 (>42); GLUCOSE, FASTING 105 MG/DL (70-100); POTASSIUM SERUM 4.2 MEQ/L (3.5-5.1); SODIUM LEVEL 138 MEQ/L (136-145)
[2019-07-30 07:11] LABS: BASO % 0.5 % (0.0-1.0); EOS # 0.2 10^3/uL (0.0-0.5); EOS % 1.8 % (0.0-3.0); HEMATOCRIT 33.7 % (42.0-52.0); HEMOGLOBIN 10.8 g/dl (13.5-17.5); LYMPH # 1.6 10^3/uL (1.5-5.0); LYMPH % 18.6 % (24.0-44.0); MEAN CORPUSCULAR HEMOGLOBIN 32.2 pg (27.0-33.0); MEAN CORPUSCULAR VOLUME 100.6 fl (80.0-96.0); MONO # 0.7 10^3/uL (0.0-0.8); MONO % 8.6 % (0.0-5.0); NEUTROPHILS # 5.8 10^3/uL (1.5-8.5); NEUTROPHILS % 69.3 % (36.0-66.0); PLATELET COUNT, AUTOMATED 457 10^3/uL (150-450); RED BLOOD COUNT 3.35 10^6/uL (4.30-6.10); WHITE BLOOD COUNT 8.4 10^3/uL (4.0-10.0)
[2019-07-30] MEDS: REMEDY PHYTOPLEX Z-GUARD PASTE 113GM TUBE (FROM STOREROOM PRODUCT) TOP SCH ×3 (09:00→20:40)
[2019-07-30] MEDS: FAMOTIDINE 20 MG TAB PO SCH ×2 (09:10→20:39)
[2019-07-30] MEDS: HEPARIN SOD (PORCINE) 5000UNITS/ML VIAL (J1644 PER 1000UNITS) SC SCH ×2 (09:10→20:39)
[2019-07-30] MEDS: ASPIRIN 81 MG ENTERIC TAB PO SCH (09:11)
[2019-07-30] MEDS: NIFEdipine 30 MG XL TAB PO SCH (09:14)
[2019-07-30] MEDS: lisinopriL 20 MG TAB PO SCH (09:14)
[2019-07-30 14:00] VITALS: BP 140/70
--- NOTE | 2019-07-30 16:32 | IPNPDOC ---
PM&R Progress Note DATE OF SERVICE: July 30, 2019 Bilingual Medical Assistant Progress Note Subjective: Patient stating he hasn't been sleeping well and would like to try a sleep aid around 11pm. REVIEW OF SYSTEMS: The following is a completed review of systems and has been reviewed. Review of systems otherwise unremarkable. PAIN: Patient self reports no pain EYES: No recent vision changes EARS, NOSE, & THROAT:+dysphagia (improving) CARDIOVASCULAR: Denies chest pain or palpitations PULMONARY: Denies shortness of breath GASTROINTESTINAL: Denies constipation/diarrhea GENITOURINARY: +mild retention (resolved) MUSCULOSKELETAL: right sided weakness NEUROLOGICAL:right sided paresis HEMATOLOGICAL: no easy bruising SKIN: no rash PSYCHIATRIC: Unremarkable All other review of systems found to be negative. PHYSICAL EXAMINATION: VITAL SIGNS: Please see below. GENERAL: Pleasant and cooperative. No acute distress. no obvious facial droop, tongue midline HEENT: PERRL. Extraocular movements intact. Clear conjunctiva CARDIOVASCULAR: Regular rate and rhythm. No murmurs, rubs, or gallops LUNGS: Clear to auscultation bilaterally. No wheezes. No rhonchi ABDOMEN: Soft, nontender, nondistended. Positive bowel sounds. Normal active bowel sounds NEUROLOGICAL: Alert and oriented times three. Cranial nerves II through XII grossly intact. Sensation grossly intact in all 4limbs, no exntinction to touch +babinksi RLE (-)clonus EXTREMITIES: 5\5 strength left upper extremity, 4-/5 right UE, 4 right hip flexors, knee extension, 4/5 ankle DF and EHL, 4/5 PF 5/5 strength in left lower extremity. SKIN: no sacral erythema ASSESSMENT:79-year-old M with past medical history of HTN who presents status post CVA with right sided hemiparesis PLAN: 1.Rehab- PT/OT advance gait and ADL training, strengthen/stretch/maintain ROM all 4 limbs, evaluate for AFO, Estim to RUE -will consult loss prevention specialist next week -ELECTROMECHANICAL TECHNOLOGIST for swallow and cog eval-advanced to thin liquids, advance to regular diet 2. Neuro: s/p left anterior wendi ischemic infarct now with right sided paresis and dysphagia, c/u ASA, statin, and good BP control -c/u SSRI for motor recovery 3. cardiac: hx of HTn c/u nifedeipine, c/u lisinopril for elevated BPs (increased to 20mg daily)-improved -recent echo showing mild diastolic CHF likely chronic- daily weights, fluid restrict -bilateral carotid stenosis 60% on US, however 75% on CTA- f/u with cardiology regarding further work-up 4. Resp: encourage incentive spirometry, monitor for infection 5. : noted to have elevated PSA with microhematuria at [facility], f/u with PMD -c/u flomax for suspected enlarged prostate, will consider urology referral- voiding well 6. GI ppx: protonix -change bowel meds to prn 7.DVT ppx: heparin, TEDs 8. Pain: tylenol prn 9. Psych: insomnia trazodone ordered 10. Dispo: 08-06-19 to home, progressing towards goals Allergies Coded Allergies: No Known Allergies (Unverified , 07/20/19) Vital Signs Vital Signs Date Time Temp Pulse Resp B/P (MAP) Pulse Ox O2 Delivery O2 Flow Rate FiO2 07/30/19 14:00 97.6 66 18 140/70 (93) 97 Room Air Laboratory Data CBC/BMP Laboratory Tests 07/30/19 06:19 Labs 24H Laboratory Tests 2 07/30/19 06:19: Immature Granulocyte % (Auto) 1.2, Neutrophils (%) (Auto) 69.3H, Lymphocytes (%) (Auto) 18.6L, Monocytes (%) (Auto) 8.6H, Eosinophils (%) (Auto) 1.8, Basophils (%) (Auto) 0.5, Neutrophils # (Auto) 5.8, Lymphocytes # (Auto) 1.6, Monocytes # (Auto) 0.7, Eosinophils # (Auto) 0.2, Basophils # (Auto) 0.0, Nucleated Red Bl ood Cells % (auto) 0.0, Anion Gap 5L, Glomerular Filtration Rate > 60.0, Calcium Level 8.9 Current Medications Current Medications Current Medications Medications (Trade) Dose Ordered Sig/Farrah Route PRN Reason Start Time Stop Time Status Last Admin Dose Admin Acetaminophen (Tylenol Tab) 650 mg Q4HP PRN PO fever/MILD PAIN (PS 1-4) 07/20/19 15:45 07/29/19 20:24 Acetaminophen/ Hydrocodone Bitart ([place], Anexsia 5/325) 1 tab Q6HP PRN PO MILD/MODERATE PAIN (PS 1-7) 07/20/19 23:00 07/27/19 08:53 DC Amlodipine Besylate (Norvasc) 10 mg DAILY PO 07/21/19 11:30 07/21/19 11:46 DC 07/21/19 11:26 Aspirin (Ecotrin) 81 mg DAILY PO 07/21/19 09:00 07/30/19 09:11 Atorvastatin Calcium (Lipitor) 80 mg QHS PO 07/20/19 21:00 07/29/19 20:24 Bisacodyl (Dulcolax Suppository) 10 mg DAILYPRN PRN [place] CONSTIPATION 07/20/19 15:45 Calcium Carbonate (Oscal) 500 mg Q4H PRN PO HEARTBURN 07/20/19 23:00 Docusate Sodium (Colace) 100 mg BID PO 07/20/19 21:00 07/29/19 14:40 DC 07/25/19 20:20 Docusate Sodium (Colace) 100 mg BID PRN PO constipation 07/29/19 14:45 Famotidine (Pepcid) 20 mg BID PO 07/20/19 21:00 07/30/19 09:10 Fluoxetine HCl (PROzac) 20 mg QHS PO 07/21/19 21:00 07/29/19 20:24 Heparin Sodium (Porcine) (Heparin) 5,000 units Q12H SC 07/20/19 21:00 07/30/19 09:10 Home Med (Med Rec Complete!) ASDIRECTED XX 07/20/19 19:15 07/20/19 20:09 DC Lisinopril (Prinivil) 10 mg DAILY PO 07/21/19 13:00 07/22/19 10:56 DC 07/22/19 08:39 Lisinopril (Prinivil) 20 mg DAILY PO 07/23/19 09:00 07/30/19 09:14 Miscellaneous (Unresolved Clarification Entry) SEE LABEL COMMENTS DAILY XX 07/27/19 09:00 07/27/19 08:53 DC Nifedipine (Procardia Xl) 90 mg DAILY PO 07/21/19 09:00 07/30/19 09:14 Senna (Senokot) 1 tab QHS PO 07/20/19 21:00 07/26/19 15:55 DC 07/25/19 20:20 Senna (Senokot) 1 tab QHS PRN PO constipation 07/26/19 21:00 Tamsulosin HCl (Flomax) 0.4 mg QHS PO 07/26/19 21:00 07/29/19 20:24 Tamsulosin HCl (Flomax) 0.4 mg QHS PO 07/21/19 21:00 07/26/19 12:17 DC 07/25/19 20:20 Tamsulosin HCl (Flomax) 0.8 mg QHS PO 07/26/19 21:00 07/26/19 15:55 KATHLEEN BETANCOURT MD July 30, 2019 16:32
[2019-07-30 20:00] VITALS: BP 132/63
[2019-07-30] MEDS: FLUoxetine 20 MG CAP PO SCH (20:39)
[2019-07-30] MEDS: TAMSULOSIN 0.4 MG CAP PO SCH (20:39)
[2019-07-30] MEDS: ATORVASTATIN 20 MG TAB PO SCH (20:40)
[2019-07-30] MEDS: traZODone 25MG PER 1/2 TABLET PO SCH (22:17)
[2019-07-31 04:37] VITALS: BP 121/61
[2019-07-31] MEDS: REMEDY PHYTOPLEX Z-GUARD PASTE 113GM TUBE (FROM STOREROOM PRODUCT) TOP SCH ×3 (09:00→20:21)
[2019-07-31] MEDS: HEPARIN SOD (PORCINE) 5000UNITS/ML VIAL (J1644 PER 1000UNITS) SC SCH ×2 (09:08→20:21)
[2019-07-31] MEDS: FAMOTIDINE 20 MG TAB PO SCH ×2 (09:08→20:21)
[2019-07-31] MEDS: lisinopriL 20 MG TAB PO SCH (09:08)
[2019-07-31] MEDS: ASPIRIN 81 MG ENTERIC TAB PO SCH (09:08)
[2019-07-31] MEDS: NIFEdipine 30 MG XL TAB PO SCH (09:08)
[2019-07-31 14:00] VITALS: BP 130/60
[2019-07-31] MEDS: TAMSULOSIN 0.4 MG CAP PO SCH (20:21)
[2019-07-31] MEDS: FLUoxetine 20 MG CAP PO SCH (20:21)
[2019-07-31] MEDS: ATORVASTATIN 20 MG TAB PO SCH (20:21)
[2019-07-31 20:28] VITALS: BP 129/60
[2019-07-31] MEDS: traZODone 25MG PER 1/2 TABLET PO SCH (22:33)
[2019-08-01 05:00] VITALS: BP 138/88
[2019-08-01] MEDS: NIFEdipine 30 MG XL TAB PO SCH (08:13)
[2019-08-01] MEDS: FAMOTIDINE 20 MG TAB PO SCH ×2 (08:13→20:55)
[2019-08-01] MEDS: ASPIRIN 81 MG ENTERIC TAB PO SCH (08:13)
[2019-08-01] MEDS: lisinopriL 20 MG TAB PO SCH (08:13)
[2019-08-01] MEDS: HEPARIN SOD (PORCINE) 5000UNITS/ML VIAL (J1644 PER 1000UNITS) SC SCH ×2 (08:14→20:55)
[2019-08-01] MEDS: REMEDY PHYTOPLEX Z-GUARD PASTE 113GM TUBE (FROM STOREROOM PRODUCT) TOP SCH ×3 (08:14→20:56)
[2019-08-01 14:00] VITALS: BP 146/64
[2019-08-01] MEDS: TAMSULOSIN 0.4 MG CAP PO SCH (20:55)
[2019-08-01] MEDS: FLUoxetine 20 MG CAP PO SCH (20:55)
[2019-08-01] MEDS: ATORVASTATIN 20 MG TAB PO SCH (20:56)
[2019-08-01 21:00] VITALS: BP 143/64
[2019-08-01] MEDS: traZODone 25MG PER 1/2 TABLET PO SCH (23:12)
[2019-08-02 06:30] VITALS: BP 132/64
[2019-08-02 06:54] LABS: BASO % 0.5 % (0.0-1.0); EOS # 0.1 10^3/uL (0.0-0.5); EOS % 1.6 % (0.0-3.0); HEMATOCRIT 32.1 % (42.0-52.0); LYMPH # 1.5 10^3/uL (1.5-5.0); LYMPH % 19.5 % (24.0-44.0); MEAN CORPUSCULAR HEMOGLOBIN 31.4 pg (27.0-33.0); MEAN CORPUSCULAR HGB CONC 31.2 g/dl (32.0-36.5); MEAN CORPUSCULAR VOLUME 100.9 fl (80.0-96.0); MONO # 0.5 10^3/uL (0.0-0.8); MONO % 6.5 % (0.0-5.0); NEUTROPHILS # 5.4 10^3/uL (1.5-8.5); NEUTROPHILS % 71.2 % (36.0-66.0); PLATELET COUNT, AUTOMATED 441 10^3/uL (150-450); RED BLOOD COUNT 3.18 10^6/uL (4.30-6.10); WHITE BLOOD COUNT 7.5 10^3/uL (4.0-10.0)
[2019-08-02 07:07] LABS: BLOOD UREA NITROGEN 21 MG/DL (7-18); CALCIUM LEVEL 9.1 MG/DL (8.8-10.2); CARBON DIOXIDE LEVEL 29 MEQ/L (21-32); CHLORIDE LEVEL 106 MEQ/L (98-107); CREATININE FOR GFR 0.88 MG/DL (0.70-1.30); GLOMERULAR FILTRATION RATE > 60.0 (>42); GLUCOSE, FASTING 115 MG/DL (70-100); POTASSIUM SERUM 4.8 MEQ/L (3.5-5.1); SODIUM LEVEL 140 MEQ/L (136-145)
[2019-08-02] MEDS: FAMOTIDINE 20 MG TAB PO SCH ×2 (08:31→21:00)
[2019-08-02] MEDS: HEPARIN SOD (PORCINE) 5000UNITS/ML VIAL (J1644 PER 1000UNITS) SC SCH ×2 (08:31→21:01)
[2019-08-02] MEDS: ASPIRIN 81 MG ENTERIC TAB PO SCH (08:31)
[2019-08-02] MEDS: REMEDY PHYTOPLEX Z-GUARD PASTE 113GM TUBE (FROM STOREROOM PRODUCT) TOP SCH ×3 (08:31→21:00)
[2019-08-02] MEDS: NIFEdipine 30 MG XL TAB PO SCH (08:34)
[2019-08-02] MEDS: lisinopriL 20 MG TAB PO SCH (08:34)
[2019-08-02 14:00] VITALS: BP 117/56
[2019-08-02] MEDS: ACETAMINOPHEN TAB 650MG DOSE (2X325MG) PO PRN ×2 (15:46→21:03)
--- NOTE | 2019-08-02 16:59 | IPNPDOC ---
PM&R Progress Note DATE OF SERVICE: August 02, 2019 Store Facility Technician Progress Note Subjective: Patient reporting he is sleeping much better and that he is eager to get home on Friday because he has projects lined up. REVIEW OF SYSTEMS: The following is a completed review of systems and has been reviewed. Review of systems otherwise unremarkable. PAIN: Patient self reports no pain EYES: No recent vision changes EARS, NOSE, & THROAT:+dysphagia (improving) CARDIOVASCULAR: Denies chest pain or palpitations PULMONARY: Denies shortness of breath GASTROINTESTINAL: Denies constipation/diarrhea GENITOURINARY: +mild retention (resolved) MUSCULOSKELETAL: right sided weakness NEUROLOGICAL:right sided paresis HEMATOLOGICAL: no easy bruising SKIN: no rash PSYCHIATRIC: Unremarkable All other review of systems found to be negative. PHYSICAL EXAMINATION: VITAL SIGNS: Please see below. GENERAL: Pleasant and cooperative. No acute distress. no obvious facial droop, tongue midline HEENT: PERRL. Extraocular movements intact. Clear conjunctiva CARDIOVASCULAR: Regular rate and rhythm. No murmurs, rubs, or gallops LUNGS: Clear to auscultation bilaterally. No wheezes. No rhonchi ABDOMEN: Soft, nontender, nondistended. Positive bowel sounds. Normal active bowel sounds NEUROLOGICAL: Alert and oriented times three. Cranial nerves II through XII grossly intact. Sensation grossly intact in all 4limbs, no exntinction to touch +babinksi RLE (-)clonus EXTREMITIES: 5\5 strength left upper extremity, 4-/5 right UE, 4 right hip flexors, knee extension, 4/5 ankle DF and EHL, 4/5 PF 5/5 strength in left lower extremity. SKIN: no sacral erythema ASSESSMENT:79-year-old M with past medical history of HTN who presents status post CVA with right sided hemiparesis PLAN: 1.Rehab- PT/OT advance gait and ADL training, strengthen/stretch/maintain ROM a ll 4 limbs, evaluate for AFO, Estim to RUE -will consult chartered financial analyst next week -AMMUNITION OFFICER for swallow and cog eval-advanced to thin liquids, advance to regular diet 2. Neuro: s/p left anterior wendi ischemic infarct now with right sided paresis and dysphagia, c/u ASA, statin, and good BP control -c/u SSRI for motor recovery 3. cardiac: hx of HTn c/u nifedeipine, c/u lisinopril for elevated BPs (increased to 20mg daily)-improved -recent echo showing mild diastolic CHF likely chronic- daily weights, fluid restrict -bilateral carotid stenosis 60% on US, however 75% on CTA- f/u with cardiology regarding further work-up 4. Resp: encourage incentive spirometry, monitor for infection 5. : noted to have elevated PSA with microhematuria at [facility], f/u with PMD -c/u flomax for suspected enlarged prostate, will consider urology referral- voiding well 6. GI ppx: protonix -change bowel meds to prn 7.DVT ppx: heparin, TEDs 8. Pain: tylenol prn 9. Psych: insomnia trazodone 25 qhs, patient states he is sleeping much better 10. Dispo: 08-06-19 to home, progressing towards goals Allergies Coded Allergies: No Known Allergies (Unverified , 07/20/19) Vital Signs Vital Signs Date Time Temp Pulse Resp B/P (MAP) Pulse Ox O2 Delivery O2 Flow Rate FiO2 08/02/19 14:00 97.5 80 18 117/56 (76) 98 Room Air Laboratory Data CBC/BMP Laboratory Tests 08/02/19 06:24 Labs 24H Laboratory Tests 2 08/02/19 06:24: Immature Granulocyte % (Auto) 0.7, Neutrophils (%) (Auto) 71.2H, Lymphocytes (%) (Auto) 19.5L, Monocytes (%) (Auto) 6.5H, Eosinophils (%) (Auto) 1.6, Basophils (%) (Auto) 0.5, Neutrophils # (Auto) 5.4, Lymphocytes # (Auto) 1.5, Monocytes # (Auto) 0.5, Eosinophils # (Auto) 0.1, Basophils # (Auto) 0.0, Nucleated Red Blood Cells % (auto) 0.0, Anion Gap 5L, Glomerular Filtration Rate > 60.0, Calcium Level 9.1 Current Medications Current Medications Current Medications Medications (Trade) Dose Ordered Sig/Farrah Route PRN Reason Start Time Stop Time Status Last Admin Dose Admin Acetaminophen (Tylenol Tab) 650 mg Q4HP PRN PO fever/MILD PAIN (PS 1-4) 07/20/19 15:45 08/02/19 15:46 Acetaminophen/ Hydrocodone Bitart ([place], Anexsia 5/325) 1 tab Q6HP PRN PO MILD/MODERATE PAIN (PS 1-7) 07/20/19 23:00 07/27/19 08:53 DC Amlodipine Besylate (Norvasc) 10 mg DAILY PO 07/21/19 11:30 07/21/19 11:46 DC 07/21/19 11:26 Aspirin (Ecotrin) 81 mg DAILY PO 07/21/19 09:00 08/02/19 08:31 Atorvastatin Calcium (Lipitor) 80 mg QHS PO 07/20/19 21:00 08/01/19 20:56 Bisacodyl (Dulcolax Suppository) 10 mg DAILYPRN PRN [place] CONSTIPATION 07/20/19 15:45 Calcium Carbonate (Oscal) 500 mg Q4H PRN PO HEARTBURN 07/20/19 23:00 Docusate Sodium (Colace) 100 mg BID PO 07/20/19 21:00 07/29/19 14:40 DC 07/25/19 20:20 Docusate Sodium (Colace) 100 mg BID PRN PO constipation 07/29/19 14:45 Famotidine (Pepcid) 20 mg BID PO 07/20/19 21:00 08/02/19 08:31 Fluoxetine HCl (PROzac) 20 mg QHS PO 07/21/19 21:00 08/01/19 20:55 Heparin Sodium (Porcine) (Heparin) 5,000 units Q12H SC 07/20/19 21:00 08/02/19 08:31 Home Med (Med Rec Complete!) ASDIRECTED XX 07/20/19 19:15 07/20/19 20:09 DC Lisinopril (Prinivil) 10 mg DAILY PO 07/21/19 13:00 07/22/19 10:56 DC 07/22/19 08:39 Lisinopril (Prinivil) 20 mg DAILY PO 07/23/19 09:00 08/02/19 08:34 Miscellaneous (Unresolved Clarification Entry) SEE LABEL COMMENTS DAILY XX 07/27/19 09:00 07/27/19 08:53 DC Miscellaneous (Unresolved Clarification Entry) SEE LABEL COMMENTS DAILY XX 08/01/19 09:00 08/02/19 09:02 DC Nifedipine (Procardia Xl) 90 mg DAILY PO 07/21/19 09:00 08/02/19 08:34 Senna (Senokot) 1 tab QHS PO 07/20/19 21:00 07/26/19 15:55 DC 07/25/19 20:20 Senna (Senokot) 1 tab QHS PRN PO constipation 07/26/19 21:00 Tamsulosin HCl (Flomax) 0.4 mg QHS PO 07/26/19 21:00 08/01/19 20:55 Tamsulosin HCl (Flomax) 0.4 mg QHS PO 07/21/19 21:00 07/26/19 12:17 DC 07/25/19 20:20 Tamsulosin HCl (Flomax) 0.8 mg QHS PO 07/26/19 21:00 07/26/19 15:55 DC Trazodone HCl (Desyrel) 25 mg DAILY@2300 PO 07/30/19 23:00 08/01/19 23:12 KATHLEEN GALVAN MD August 02, 2019 16:59
[2019-08-02 20:00] VITALS: BP 135/62
[2019-08-02] MEDS: TAMSULOSIN 0.4 MG CAP PO SCH (21:00)
[2019-08-02] MEDS: ATORVASTATIN 20 MG TAB PO SCH (21:00)
[2019-08-02] MEDS: FLUoxetine 20 MG CAP PO SCH (21:00)
[2019-08-02] MEDS: traZODone 25MG PER 1/2 TABLET PO SCH (23:02)
[2019-08-03 06:00] VITALS: BP 118/64
[2019-08-03] MEDS: REMEDY PHYTOPLEX Z-GUARD PASTE 113GM TUBE (FROM STOREROOM PRODUCT) TOP SCH ×3 (09:00→20:29)
[2019-08-03] MEDS: lisinopriL 20 MG TAB PO SCH (09:23)
[2019-08-03] MEDS: FAMOTIDINE 20 MG TAB PO SCH ×2 (09:23→20:26)
[2019-08-03] MEDS: ASPIRIN 81 MG ENTERIC TAB PO SCH (09:23)
[2019-08-03] MEDS: HEPARIN SOD (PORCINE) 5000UNITS/ML VIAL (J1644 PER 1000UNITS) SC SCH ×2 (09:24→20:26)
[2019-08-03] MEDS: NIFEdipine 30 MG XL TAB PO SCH (09:24)
--- NOTE | 2019-08-03 11:19 | IPNPDOC ---
PM&R Progress Note DATE OF SERVICE: August 03, 2019 [employer] B[employer] Developer Progress Note Subjective: REVIEW OF SYSTEMS: The following is a completed review of systems and has been reviewed. Review of systems otherwise unremarkable. PAIN: Patient self reports no pain EYES: No recent vision changes EARS, NOSE, & THROAT:+dysphagia (improving) CARDIOVASCULAR: Denies chest pain or palpitations PULMONARY: Denies shortness of breath GASTROINTESTINAL: Denies constipation/diarrhea GENITOURINARY: +mild retention (resolved) MUSCULOSKELETAL: right sided weakness NEUROLOGICAL:right sided paresis HEMATOLOGICAL: no easy bruising SKIN: no rash PSYCHIATRIC: Unremarkable All other review of systems found to be negative. PHYSICAL EXAMINATION: VITAL SIGNS: Please see below. GENERAL: Pleasant and cooperative. No acute distress. no obvious facial droop, t ongue midline HEENT: PERRL. Extraocular movements intact. Clear conjunctiva CARDIOVASCULAR: Regular rate and rhythm. No murmurs, rubs, or gallops LUNGS: Clear to auscultation bilaterally. No wheezes. No rhonchi ABDOMEN: Soft, nontender, nondistended. Positive bowel sounds. Normal active bowel sounds NEUROLOGICAL: Alert and oriented times three. Cranial nerves II through XII grossly intact. Sensation grossly intact in all 4limbs, no exntinction to touch +babinksi RLE (-)clonus EXTREMITIES: 5\5 strength left upper extremity, 4-/5 right UE, 4 right hip flexors, knee extension, 4/5 ankle DF and EHL, 4/5 PF 5/5 strength in left lower extremity. SKIN: no sacral erythema ASSESSMENT:79-year-old M with past medical history of HTN who presents status post CVA with right sided hemiparesis PLAN: 1.Rehab- PT/OT advance gait and ADL training, strengthen/stretch/maintain ROM all 4 limbs, evaluate for AFO, Estim to RUE -will consult financial internship next week -FUSING LINE INSPECTOR for swallow and cog eval-advanced to thin liquids, advance to regular diet 2. Neuro: s/p left anterior wendi ischemic infarct now with right sided paresis and dysphagia, c/u ASA, statin, and good BP control -c/u SSRI for motor recovery 3. cardiac: hx of HTn c/u nifedeipine, c/u lisinopril for elevated BPs (increas ed to 20mg daily)-improved -recent echo showing mild diastolic CHF likely chronic- daily weights, fluid restrict -bilateral carotid stenosis 60% on US, however 75% on CTA- f/u with cardiology regarding further work-up 4. Resp: encourage incentive spirometry, monitor for infection 5. : noted to have elevated PSA with microhematuria at [facility], f/u with PMD -c/u flomax for suspected enlarged prostate, will consider urology referral- voiding well 6. GI ppx: protonix -change bowel meds to prn 7.DVT ppx: heparin, TEDs 8. Pain: tylenol prn 9. Psych: insomnia trazodone 25 qhs, patient states he is sleeping much better 10. Dispo: 08-06-19 to home, progressing towards goals Allergies Coded Allergies: No Known Allergies (Unverified , 07/20/19) Vital Signs Vital Signs Date Time Temp Pulse Resp B/P (MAP) Pulse Ox O2 Delivery O2 Flow Rate FiO2 08/03/19 09:23 123/56 08/03/19 06:00 97.9 68 18 97 Room Air Current Medications Current Medications Current Medications Medications (Trade) Dose Ordered Sig/Farrah Route PRN Reason Start Time Stop Time Status Last Admin Dose Admin Acetaminophen (Tylenol Tab) 650 mg Q4HP PRN PO fever/MILD PAIN (PS 1-4) 07/20/19 15:45 08/02/19 21:03 Acetaminophen/ Hydrocodone Bitart ([place], Anexsia 5/325) 1 tab Q6HP PRN PO MILD/MODERATE PAIN (PS 1-7) 07/20/19 23:00 07/27/19 08:53 DC Amlodipine Besylate (Norvasc) 10 mg DAILY PO 07/21/19 11:30 07/21/19 11:46 DC 07/21/19 11:26 Aspirin (Ecotrin) 81 mg DAILY PO 07/21/19 09:00 08/03/19 09:23 Atorvastatin Calcium (Lipitor) 80 mg QHS PO 07/20/19 21:00 08/02/19 21:00 Bisacodyl (Dulcolax Suppository) 10 mg DAILYPRN PRN [place] CONSTIPATION 07/20/19 15:45 Calcium Carbonate (Oscal) 500 mg Q4H PRN PO HEARTBURN 07/20/19 23:00 Docusate Sodium (Colace) 100 mg BID PO 07/20/19 21:00 07/29/19 14:40 DC 07/25/19 20:20 Docusate Sodium (Colace) 100 mg BID PRN PO constipation 07/29/19 14:45 Famotidine (Pepcid) 20 mg BID PO 07/20/19 21:00 08/03/19 09:23 Fluoxetine HCl (PROzac) 20 mg QHS PO 07/21/19 21:00 08/02/19 21:00 Heparin Sodium (Porcine) (Heparin) 5,000 units Q12H SC 07/20/19 21:00 08/03/19 09:24 Home Med (Med Rec Complete!) ASDIRECTED XX 07/20/19 19:15 07/20/19 20:09 DC Lisinopril (Prinivil) 10 mg DAILY PO 07/21/19 13:00 07/22/19 10:56 DC 07/22/19 08:39 Lisinopril (Prinivil) 20 mg DAILY PO 07/23/19 09:00 08/03/19 09:23 Miscellaneous (Unresolved Clarification Entry) SEE LABEL COMMENTS DAILY XX 07/27/19 09:00 07/27/19 08:53 DC Miscellaneous (Unresolved Clarification Entry) SEE LABEL COMMENTS DAILY XX 08/01/19 09:00 08/02/19 09:02 DC Nifedipine (Procardia Xl) 90 mg DAILY PO 07/21/19 09:00 08/03/19 09:24 Senna (Senokot) 1 tab QHS PO 07/20/19 21:00 07/26/19 15:55 DC 07/25/19 20:20 Senna (Senokot) 1 tab QHS PRN PO constipation 07/26/19 21:00 Tamsulosin HCl (Flomax) 0.4 mg QHS PO 07/26/19 21:00 08/02/19 21:00 Tamsulosin HCl (Flomax) 0.4 mg QHS PO 07/21/19 21:00 07/26/19 12:17 DC 07/25/19 20:20 Tamsulosin HCl (Flomax) 0.8 mg QHS PO 07/26/19 21:00 07/26/19 15:55 DC Trazodone HCl (Desyrel) 25 mg DAILY@2300 PO 07/30/19 23:00 08/02/19 23:02 KATHLEEN GALVAN MD August 03, 2019 11:19
[2019-08-03] MEDS: ACETAMINOPHEN TAB 650MG DOSE (2X325MG) PO PRN ×2 (12:49→21:31)
[2019-08-03 14:00] VITALS: BP 149/69
[2019-08-03 20:00] VITALS: BP 118/58
[2019-08-03] MEDS: ATORVASTATIN 20 MG TAB PO SCH (20:26)
[2019-08-03] MEDS: TAMSULOSIN 0.4 MG CAP PO SCH (20:26)
[2019-08-03] MEDS: FLUoxetine 20 MG CAP PO SCH (20:26)
[2019-08-03] MEDS: traZODone 25MG PER 1/2 TABLET PO SCH (23:00)
[2019-08-04 06:00] VITALS: BP 134/64
[2019-08-04 06:48] LABS: BASO % 0.5 % (0.0-1.0); EOS # 0.1 10^3/uL (0.0-0.5); EOS % 1.8 % (0.0-3.0); HEMATOCRIT 33.9 % (42.0-52.0); HEMOGLOBIN 10.7 g/dl (13.5-17.5); LYMPH # 1.2 10^3/uL (1.5-5.0); LYMPH % 20.4 % (24.0-44.0); MEAN CORPUSCULAR HEMOGLOBIN 31.8 pg (27.0-33.0); MEAN CORPUSCULAR HGB CONC 31.6 g/dl (32.0-36.5); MEAN CORPUSCULAR VOLUME 100.6 fl (80.0-96.0); MONO # 0.4 10^3/uL (0.0-0.8); MONO % 7.2 % (0.0-5.0); NEUTROPHILS # 4.2 10^3/uL (1.5-8.5); NEUTROPHILS % 69.6 % (36.0-66.0); PLATELET COUNT, AUTOMATED 464 10^3/uL (150-450); RED BLOOD COUNT 3.37 10^6/uL (4.30-6.10); WHITE BLOOD COUNT 6.1 10^3/uL (4.0-10.0)
[2019-08-04 07:09] LABS: BLOOD UREA NITROGEN 16 MG/DL (7-18); CALCIUM LEVEL 9.1 MG/DL (8.8-10.2); CARBON DIOXIDE LEVEL 30 MEQ/L (21-32); CHLORIDE LEVEL 106 MEQ/L (98-107); CREATININE FOR GFR 0.86 MG/DL (0.70-1.30); GLOMERULAR FILTRATION RATE > 60.0 (>42); GLUCOSE, FASTING 104 MG/DL (70-100); POTASSIUM SERUM 4.7 MEQ/L (3.5-5.1); SODIUM LEVEL 140 MEQ/L (136-145)
[2019-08-04] MEDS: REMEDY PHYTOPLEX Z-GUARD PASTE 113GM TUBE (FROM STOREROOM PRODUCT) TOP SCH ×3 (09:00→20:43)
[2019-08-04] MEDS ORDERED: ATOR80TA59 PO (10:21)
[2019-08-04] MEDS ORDERED: FLUO20CA22 PO (10:21)
[2019-08-04] MEDS ORDERED: FLOM0.4C39 PO (10:21)
[2019-08-04] MEDS ORDERED: ASPI81TA85 PO (10:21)
[2019-08-04] MEDS ORDERED: NIFE90TA20 PO (10:21)
[2019-08-04] MEDS ORDERED: TRAZ-252 PO (10:21)
[2019-08-04] MEDS ORDERED: LISI-538 PO (10:21)
[2019-08-04] MEDS ORDERED: FAMO20TA PO (10:21)
--- NOTE | 2019-08-04 10:23 | IPNPDOC ---
PM&R Progress Note DATE OF SERVICE: August 04, 2019 Unit Secretary Progress Note Subjective: Patient reporting he feels well, is ready for room privileges, and wants to continue taking the trazodone when he goes home. REVIEW OF SYSTEMS: The following is a completed review of systems and has been reviewed. Review of systems otherwise unremarkable. PAIN: Patient self reports no pain EYES: No recent vision changes EARS, NOSE, & THROAT:+dysphagia (improving) CARDIOVASCULAR: Denies chest pain or palpitations PULMONARY: Denies shortness of breath GASTROINTESTINAL: Denies constipation/diarrhea GENITOURINARY: +mild retention (resolved) MUSCULOSKELETAL: right sided weakness NEUROLOGICAL:right sided paresis HEMATOLOGICAL: no easy bruising SKIN: no rash PSYCHIATRIC: Unremarkable All other review of systems found to be negative. PHYSICAL EXAMINATION: VITAL SIGNS: Please see below. GENERAL: Pleasant and cooperative. No acute distress. no obvious facial droop, tongue midline HEENT: PERRL. Extraocular movements intact. Clear conjunctiva CARDIOVASCULAR: Regular rate and rhythm. No murmurs, rubs, or gallops LUNGS: Clear to auscultation bilaterally. No wheezes. No rhonchi ABDOMEN: Soft, nontender, nondistended. Positive bowel sounds. Normal active bowel sounds NEUROLOGICAL: Alert and oriented times three. Cranial nerves II through XII gr ossly intact. Sensation grossly intact in all 4limbs, no exntinction to touch +babinksi RLE (-)clonus EXTREMITIES: 5\5 strength left upper extremity, 4-/5 right UE, 4 right hip flexors, knee extension, 4/5 ankle DF and EHL, 4/5 PF 5/5 strength in left lower extremity. SKIN: no sacral erythema ASSESSMENT:79-year-old M with past medical history of HTN who presents status post CVA with right sided hemiparesis PLAN: 1.Rehab- PT/OT advance gait and ADL training, strengthen/stretch/maintain ROM all 4 limbs, evaluate for AFO, Estim to RUE- room privileges -patient seen by [employer] -LE[employer] BUSINESS SYSTEMS ANALYST for swallow and cog eval-advanced to thin liquids, advance to regular diet 2. Neuro: s/p left anterior wendi ischemic infarct now with right sided paresis and dysphagia, c/u ASA, statin, and good BP control -c/u SSRI for motor recovery 3. cardiac: hx of HTn c/u nifedeipine, c/u lisinopril for elevated BPs (increased to 20mg daily)-improved -recent echo showing mild diastolic CHF likely chronic- daily weights, fluid restrict -bilateral carotid stenosis 60% on US, however 75% on CTA- f/u with cardiology regarding further work-up 4. Resp: encourage incentive spirometry, monitor for infection 5. : noted to have elevated PSA with microhematuria at [facility], f/u with PMD -c/u flomax for suspected enlarged prostate, will consider urology referral- voiding well 6. GI ppx: protonix -change bowel meds to prn 7.DVT ppx: heparin, TEDs 8. Pain: tylenol prn 9. Psych: insomnia trazodone 25 qhs, patient states he is sleeping much better 10. Dispo: 08-06-19 to home, progressing towards goals Allergies Coded Allergies: No Known Allergies (Unverified , 07/20/19) Vital Signs Vital Signs Date Time Temp Pulse Resp B/P (MAP) Pulse Ox O2 Delivery O2 Flow Rate FiO2 08/04/19 06:00 97.5 66 16 134/64 (87) 96 Room Air Laboratory Data CBC/BMP Laboratory Tests 08/04/19 06:23 Labs 24H Laboratory Tests 2 08/04/19 06:23: Immature Granulocyte % (Auto) 0.5, Neutrophils (%) (Auto) 69.6H, Lymphocytes (%) (Auto) 20.4L, Monocytes (%) (Auto) 7.2H, Eosinophils (%) (Auto) 1.8, Basophils (%) (Auto) 0.5, Neutrophils # (Auto) 4.2, Lymphocytes # (Auto) 1.2L, Monocytes # (Auto) 0.4, Eosinophils # (Auto) 0.1, Basophils # (Auto) 0.0, Nucleated Red Blood Cells % (auto) 0.0, Anion Gap 4L, Glomerular Filtration Rate > 60.0, Calcium Level 9.1 Current Medications Current Medications Current Medications Medications (Trade) Dose Ordered Sig/Farrah Route PRN Reason Start Time Stop Time Status Last Admin Dose Admin Acetaminophen (Tylenol Tab) 650 mg Q4HP PRN PO fever/MILD PAIN (PS 1-4) 07/20/19 15:45 08/03/19 21:31 Acetaminophen/ Hydrocodone Bitart ([place], Anexsia 5/325) 1 tab Q6HP PRN PO MILD/MODERATE PAIN (PS 1-7) 07/20/19 23:00 07/27/19 08:53 DC Amlodipine Besylate (Norvasc) 10 mg DAILY PO 07/21/19 11:30 07/21/19 11:46 DC 07/21/19 11:26 Aspirin (Ecotrin) 81 mg DAILY PO 07/21/19 09:00 08/03/19 09:23 Atorvastatin Calcium (Lipitor) 80 mg QHS PO 07/20/19 21:00 08/03/19 20:26 Bisacodyl (Dulcolax Suppository) 10 mg DAILYPRN PRN [place] CONSTIPATION 07/20/19 15:45 Calcium Carbonate (Oscal) 500 mg Q4H PRN PO HEARTBURN 07/20/19 23:00 Docusate Sodium (Colace) 100 mg BID PO 07/20/19 21:00 07/29/19 14:40 DC 07/25/19 20:20 Docusate Sodium (Colace) 100 mg BID PRN PO constipation 07/29/19 14:45 Famotidine (Pepcid) 20 mg BID PO 07/20/19 21:00 08/03/19 20:26 Fluoxetine HCl (PROzac) 20 mg QHS PO 07/21/19 21:00 08/03/19 20:26 Heparin Sodium (Porcine) (Heparin) 5,000 units Q12H SC 07/20/19 21:00 08/03/19 20:26 Home Med (Med Rec Complete!) ASDIRECTED XX 07/20/19 19:15 07/20/19 20:09 DC Lisinopril (Prinivil) 10 mg DAILY PO 07/21/19 13:00 07/22/19 10:56 DC 07/22/19 08:39 Lisinopril (Prinivil) 20 mg DAILY PO 07/23/19 09:00 08/03/19 09:23 Miscellaneous (Unresolved Clarification Entry) SEE LABEL COMMENTS DAILY XX 07/27/19 09:00 07/27/19 08:53 DC Miscellaneous (Unresolved Clarification Entry) SEE LABEL COMMENTS DAILY XX 08/01/19 09:00 08/02/19 09:02 DC Nifedipine (Procardia Xl) 90 mg DAILY PO 07/21/19 09:00 08/03/19 09:24 Senna (Senokot) 1 tab QHS PO 07/20/19 21:00 07/26/19 15:55 DC 07/25/19 20:20 Senna (Senokot) 1 tab QHS PRN PO constipation 07/26/19 21:00 Tamsulosin HCl (Flomax) 0.4 mg QHS PO 07/26/19 21:00 08/03/19 20:26 Tamsulosin HCl (Flomax) 0.4 mg QHS PO 07/21/19 21:00 07/26/19 12:17 DC 07/25/19 20:20 Tamsulosin HCl (Flomax) 0.8 mg QHS PO 07/26/19 21:00 07/26/19 15:55 DC Trazodone HCl (Desyrel) 25 mg DAILY@2300 PO 07/30/19 23:00 08/03/19 23:00 KATHLEEN GALVAN MD August 04, 2019 10:23
[2019-08-04] MEDS: lisinopriL 20 MG TAB PO SCH (10:48)
[2019-08-04] MEDS: ASPIRIN 81 MG ENTERIC TAB PO SCH (10:48)
[2019-08-04] MEDS: FAMOTIDINE 20 MG TAB PO SCH ×2 (10:48→20:42)
[2019-08-04] MEDS: HEPARIN SOD (PORCINE) 5000UNITS/ML VIAL (J1644 PER 1000UNITS) SC SCH ×2 (10:49→20:43)
[2019-08-04] MEDS: NIFEdipine 30 MG XL TAB PO SCH (10:49)
[2019-08-04] MEDS: ACETAMINOPHEN TAB 650MG DOSE (2X325MG) PO PRN ×2 (13:01→18:28)
[2019-08-04 14:00] VITALS: BP 149/67
[2019-08-04 20:06] VITALS: BP 131/61
[2019-08-04] MEDS: TAMSULOSIN 0.4 MG CAP PO SCH (20:42)
[2019-08-04] MEDS: ATORVASTATIN 20 MG TAB PO SCH (20:42)
[2019-08-04] MEDS: FLUoxetine 20 MG CAP PO SCH (20:42)
[2019-08-04] MEDS: traZODone 25MG PER 1/2 TABLET PO SCH (22:31)
[2019-08-05 06:00] VITALS: BP_SYST 119; BP_SYST 121; BP_DIAS 72; BP_DIAS 83
[2019-08-05] MEDS: REMEDY PHYTOPLEX Z-GUARD PASTE 113GM TUBE (FROM STOREROOM PRODUCT) TOP SCH ×3 (09:00→21:04)
[2019-08-05] MEDS: lisinopriL 20 MG TAB PO SCH (09:13)
[2019-08-05] MEDS: FAMOTIDINE 20 MG TAB PO SCH ×2 (09:13→21:03)
[2019-08-05] MEDS: ASPIRIN 81 MG ENTERIC TAB PO SCH (09:13)
[2019-08-05] MEDS: NIFEdipine 30 MG XL TAB PO SCH (09:14)
[2019-08-05] MEDS: HEPARIN SOD (PORCINE) 5000UNITS/ML VIAL (J1644 PER 1000UNITS) SC SCH ×2 (09:14→21:02)
[2019-08-05 14:00] VITALS: BP 149/70
[2019-08-05 20:00] VITALS: BP 134/63
[2019-08-05] MEDS: ATORVASTATIN 20 MG TAB PO SCH (21:03)
[2019-08-05] MEDS: TAMSULOSIN 0.4 MG CAP PO SCH (21:03)
[2019-08-05] MEDS: FLUoxetine 20 MG CAP PO SCH (21:03)
[2019-08-05] MEDS: traZODone 25MG PER 1/2 TABLET PO SCH (22:38)
[2019-08-06 06:00] VITALS: BP 130/64
[2019-08-06] MEDS: HEPARIN SOD (PORCINE) 5000UNITS/ML VIAL (J1644 PER 1000UNITS) SC SCH (08:58)
[2019-08-06] MEDS: ASPIRIN 81 MG ENTERIC TAB PO SCH (08:58)
[2019-08-06] MEDS: FAMOTIDINE 20 MG TAB PO SCH (08:58)
[2019-08-06] MEDS: REMEDY PHYTOPLEX Z-GUARD PASTE 113GM TUBE (FROM STOREROOM PRODUCT) TOP SCH (08:59)
[2019-08-06 09:01] VITALS: BP 155/71
[2019-08-06] MEDS: lisinopriL 20 MG TAB PO SCH (09:01)
[2019-08-06] MEDS: NIFEdipine 30 MG XL TAB PO SCH (09:02)
== END 2019-08-06 12:49 | disposition home or self-care (01) | DRG 57 ==
LOC: M PM&R 17:40
PROVIDERS: ADMIT Physical Medicine & Rehabilitation; ATTEND Physical Medicine & Rehabilitation
DX: I69.351 Hemiplegia and hemiparesis following cerebral infarction affecting right dominant side (principal); I50.32 Chronic diastolic (congestive) heart failure; I11.0 Hypertensive heart disease with heart failure; I69.391 Dysphagia following cerebral infarction; R13.10 Dysphagia, unspecified; E78.5 Hyperlipidemia, unspecified; I65.23 Occlusion and stenosis of bilateral carotid arteries; M51.36 Other intervertebral disc degeneration, lumbar region; R33.9 Retention of urine, unspecified; R73.03 Prediabetes; R26.89 Other abnormalities of gait and mobility; G47.00 Insomnia, unspecified; N40.1 Benign prostatic hyperplasia with lower urinary tract symptoms; Z79.82 Long term (current) use of aspirin; Z79.899 Other long term (current) drug therapy; Z87.891 Personal history of nicotine dependence